=== PATIENT | male | born 1960 | race Asian ===

== ENCOUNTER 2016-06-15 04:47 | Emergency (ER) | payer MEDICAID, OTHER ==
[~2016-06-15] VITALS: Ht 157.5 cm; Wt 75.0 kg
[~2016-06-15 04:47] MED LIST: MULT-248 PO; PALI3 PO
[2016-06-15 06:56] LABS: BASOPHILS % (AUTO) 0.3 % (0.0-2.0); EOSINOPHILS % (AUTO) 1.6 % (1.0-6.0); HEMOGLOBIN 14.3 g/dL (13.5-17.5); LYMPHOCYTES # (AUTO) 1.1 K/uL (1.0-4.8); LYMPHOCYTES % (AUTO) 11.6 % (22.0-44.0); MEAN CORPUSCULAR HEMOGLOBIN 29.3 pg (26.0-34.0); MEAN CORPUSCULAR HGB CONC 32.6 G/dL (31.0-37.0); MEAN CORPUSCULAR VOLUME 90 fL (80-100); MONOCYTES # (AUTO) 0.5 K/uL (0.1-1.0); MONOCYTES % (AUTO) 5.3 % (2.0-9.0); NEUTROPHILS # (AUTO) 8.1 K/uL (1.8-7.7); NEUTROPHILS % (AUTO) 81.2 % (40.0-70.0); PLATELET COUNT (AUTO) 256 K/uL (150-450); RED BLOOD CELL COUNT(AUTO) 4.89 MIL/uL (4.50-5.90); RED CELL DISTRIBUTION WIDTH 15.7 % (11.5-14.5); WHITE BLOOD COUNT (AUTO) 9.9 K/uL (4.5-11.0)
[2016-06-15 07:01] LABS: ANION GAP 6 mmol/L (8-16); CALCIUM, TOTAL 8.9 mg/dL (8.8-10.5); CARBON DIOXIDE 31 mmol/L (22-29); CHLORIDE 103 mmol/L (98-107); CREATININE 0.73 mg/dL (0.60-1.30); GLOMERULAR FILTR. RATE CALC > 60 mL/min (>60); POTASSIUM 4.1 mmol/L (3.5-5.1); SODIUM SERUM 140 mmol/L (136-145); UREA NITROGEN, BLOOD 11 mg/dL (7-18)
[2016-06-15 07:13] LABS: ALANINE AMINOTRANSFERASE 15 U/L (12-78); ALBUMIN 3.8 g/dL (3.4-5.0); ASPARTATE AMINOTRANSFERASE 8 U/L (15-37); BILIRUBIN,TOTAL 0.4 mg/dL (0.1-1.0); TOTAL PROTEIN, SERUM 7.6 g/dL (6.4-8.2)
[2016-06-15 09:03] VITALS: BP 121/79
== END 2016-06-15 09:17 | disposition home or self-care (01) ==
LOC: EMS 04:49
DX: S30.842A External constriction of penis, initial encounter (principal); F17.210 Nicotine dependence, cigarettes, uncomplicated; F12.90 Cannabis use, unspecified, uncomplicated; W49.01XA Hair causing external constriction, initial encounter; Y93.89 Activity, other specified; Y92.89 Other specified places as the place of occurrence of the external cause; Y99.8 Other external cause status
CPT/HCPCS: 99291

== ENCOUNTER 2017-07-08 13:47 | Inpatient (IN) | payer MEDICAID, OTHER ==
[~2017-07-08] VITALS: Ht 170.2 cm; Wt 58.2 kg
[~2017-07-08 13:47] MED LIST changes: -MULT-248 PO; +PALI234D IM
[2017-07-08] MEDS ORDERED: RISP2 PO (14:22)
[2017-07-08 15:28] LABS: BASOPHILS % (AUTO) 0.8 % (0.0-2.0); EOSINOPHILS % (AUTO) 4.3 % (1.0-6.0); HEMATOCRIT 39.8 % (41-53); HEMOGLOBIN 13.3 g/dL (13.5-17.5); LYMPHOCYTES # (AUTO) 1.5 K/uL (1.0-4.8); LYMPHOCYTES % (AUTO) 30.3 % (22.0-44.0); MEAN CORPUSCULAR HGB CONC 33.3 G/dL (31.0-37.0); MEAN CORPUSCULAR VOLUME 90 fL (80-100); MONOCYTES # (AUTO) 0.4 K/uL (0.1-1.0); MONOCYTES % (AUTO) 8.8 % (2.0-9.0); NEUTROPHILS # (AUTO) 2.7 K/uL (1.8-7.7); NEUTROPHILS % (AUTO) 55.8 % (40.0-70.0); PLATELET COUNT (AUTO) 260 K/uL (150-450); RED BLOOD CELL COUNT(AUTO) 4.41 MIL/uL (4.50-5.90); RED CELL DISTRIBUTION WIDTH 14.4 % (11.5-14.5)
[2017-07-08 15:52] LABS: ANION GAP 8 mmol/L (8-16); CALCIUM, TOTAL 8.5 mg/dL (8.8-10.5); CARBON DIOXIDE 29 mmol/L (22-29); CHLORIDE 105 mmol/L (98-107); CREATININE 0.87 mg/dL (0.60-1.30); GLOMERULAR FILTR. RATE CALC > 60 mL/min (>60); GLUCOSE,RANDOM 176 mg/dL (70-110); POTASSIUM 3.2 mmol/L (3.5-5.1); SODIUM SERUM 142 mmol/L (136-145); UREA NITROGEN, BLOOD 11 mg/dL (7-18)
[2017-07-08 16:01] LABS: ALANINE AMINOTRANSFERASE 46 U/L (12-78); ALBUMIN 3.6 g/dL (3.4-5.0); ALKALINE PHOSPHATASE 76 U/L (46-116); ASPARTATE AMINOTRANSFERASE 22 U/L (15-37); BILIRUBIN,TOTAL 0.2 mg/dL (0.1-1.0); TOTAL PROTEIN, SERUM 6.7 g/dL (6.4-8.2)
[2017-07-08 17:31] LABS: AMPHET/METH SCREEN,URINE NEGATIVE (NEGATIVE); BARBITURATE SCREEN, URINE NEGATIVE (NEGATIVE); BENZODIAZEPINES SCREEN,URINE NEGATIVE (NEGATIVE); CANNABINOID SCREEN,URINE NEGATIVE (NEGATIVE); COCAINE SCREEN,URINE NEGATIVE (NEGATIVE); METHADONE SCREEN, URINE NEGATIVE (NEGATIVE); OPIATE SCREEN,URINE NEGATIVE (NEGATIVE)
[2017-07-08 17:35] LABS: PHENCYCLIDINE SCREEN,URINE NEGATIVE (NEGATIVE)
[2017-07-08 19:59] VITALS: BP 140/90
[2017-07-08 21:06] VITALS: BP 140/90
[2017-07-08] MEDS ORDERED: POTASSIUM CHLORIDE 20 MEQ ER TABLET PO ONE (21:30)
[2017-07-08] MEDS ORDERED: IBUPROFEN 600 MG TABLET PO PRN (22:15)
[2017-07-08] MEDS ORDERED: DENTURE ADHESIVE 68 GM CREAM DT PRN (22:15)
[2017-07-08] MEDS ORDERED: ALBUTEROL SULFATE HFA 90 MCG/PUFF 8 GM INHALER IH PRN (22:15)
[2017-07-08] MEDS ORDERED: ONDANSETRON HCL 4 MG TABLET PO PRN (22:15)
[2017-07-08] MEDS ORDERED: MAG HYDROX/AL HYDROX/SIMETH ES 30 ML SUSPENSION UDCUP PO PRN (22:15)
[2017-07-08] MEDS ORDERED: ACETAMINOPHEN 325 MG TABLET PO PRN (22:15)
[2017-07-08] MEDS ORDERED: CloNIDine HCL 0.1 MG TABLET PO PRN (22:15)
[2017-07-08] MEDS ORDERED: PETROLATUM,WHITE 71 GM JELLY TP PRN (22:15)
[2017-07-08] MEDS ORDERED: BENZOCAINE/MENTHOL LOZENGE PO PRN (22:15)
[2017-07-08] MEDS ORDERED: MAGNESIUM HYDROXIDE SUSPENSION 30 ML UDCUP PO PRN (22:15)
[2017-07-08] MEDS ORDERED: LOPERAMIDE HCL 2 MG CAPSULE PO PRN (22:15)
[2017-07-09] MEDS: HALOPERIDOL 5 MG TABLET PO PRN (01:11)
[2017-07-09] MEDS: ZOLPIDEM TARTRATE 10 MG TABLET PO PRN (01:12)
[2017-07-09 03:52] VITALS: BP 140/88
[2017-07-09 06:52] LABS: GLUCOMETER DEV NAME(LOC) 3EI B; GLUCOSE,POINT OF CARE 122 MG/DL (70-110)
[2017-07-09] MEDS ORDERED: ACETAMINOPHEN 325 MG TABLET PO PRN (08:45)
[2017-07-09] MEDS ORDERED: IBUPROFEN 400 MG TABLET PO PRN (08:45)
[2017-07-09] MEDS: BACITRACIN 28.4 GM OINTMENT TP SCH ×2 (09:32→16:10)
[2017-07-09 12:32] VITALS: BP 137/85
[2017-07-09 17:02] LABS: GLUCOMETER DEV NAME(LOC) 3EI B; GLUCOSE,POINT OF CARE 102 MG/DL (70-110)
[2017-07-09 20:11] VITALS: BP 119/78
[2017-07-10 00:40] VITALS: BP 125/80
[2017-07-10 06:22] LABS: GLUCOMETER DEV NAME(LOC) 3EI B; GLUCOSE,POINT OF CARE 82 MG/DL (70-110)
[2017-07-10 07:39] LABS: HEMOGLOBIN A1C 5.5 % (4.5-6.2)
[2017-07-10 07:55] LABS: CHOL/HDL RATIO 2.4 (4.2-7.3); THYROID STIMULATING HORMONE 1.63 uIU/mL (0.36-3.74)
[2017-07-10 08:20] LABS: AMPHET/METH SCREEN,URINE NEGATIVE (NEGATIVE); BARBITURATE SCREEN, URINE NEGATIVE (NEGATIVE); BENZODIAZEPINES SCREEN,URINE NEGATIVE (NEGATIVE); CANNABINOID SCREEN,URINE NEGATIVE (NEGATIVE); COCAINE SCREEN,URINE NEGATIVE (NEGATIVE); METHADONE SCREEN, URINE NEGATIVE (NEGATIVE); OPIATE SCREEN,URINE NEGATIVE (NEGATIVE); PHENCYCLIDINE SCREEN,URINE NEGATIVE (NEGATIVE)
[2017-07-10 08:53] LABS: APPEARANCE,URINE CLEAR (CLEAR); BILIRUBIN,URINE NEGATIVE (NEGATIVE); GLUCOSE, URINE (UA) NEGATIVE (NEGATIVE); KETONES,URINE NEGATIVE (NEGATIVE); LEUKOCYTE ESTERASE ,URINE NEGATIVE (NEGATIVE); NITRATE,URINE NEGATIVE (NEGATIVE); OCCULT BLOOD,URINE NEGATIVE (NEGATIVE); PROTEIN,URINE NEGATIVE (NEGATIVE); UROBILINOGEN,URINE 0.2 mg/dL (<=1.0)
[2017-07-10 09:39] VITALS: BP 133/75
[2017-07-10] MEDS: OLANZapine 5 MG RAPDIS TABLET PO SCH ×2 (09:39→16:30)
[2017-07-10] MEDS: BACITRACIN 28.4 GM OINTMENT TP SCH ×2 (09:39→16:30)
[2017-07-10 16:38] LABS: GLUCOMETER DEV NAME(LOC) 3EI B; GLUCOSE,POINT OF CARE 102 MG/DL (70-110)
[2017-07-10 16:55] VITALS: BP 131/82
[2017-07-11 06:43] LABS: GLUCOMETER DEV NAME(LOC) 3EI B; GLUCOSE,POINT OF CARE 146 MG/DL (70-110)
[2017-07-11 08:54] VITALS: BP 125/63
[2017-07-11] MEDS: BACITRACIN 28.4 GM OINTMENT TP SCH ×2 (09:00→16:30)
[2017-07-11] MEDS: OLANZapine 5 MG RAPDIS TABLET PO SCH ×2 (10:33→16:30)
[2017-07-11] MEDS: MUPIROCIN CALCIUM 2% 22 GM OINTMENT NASAL SCH (16:30)
[2017-07-11 17:51] VITALS: BP 101/67
[2017-07-12 02:00] VITALS: BP 142/96
[2017-07-12] MEDS: LORazepam 2 MG TABLET PO PRN (02:11)
[2017-07-12] MEDS: ZOLPIDEM TARTRATE 10 MG TABLET PO PRN (02:11)
[2017-07-12 06:18] LABS: GLUCOMETER DEV NAME(LOC) 3EI B; GLUCOSE,POINT OF CARE 80 MG/DL (70-110)
[2017-07-12 08:30] VITALS: BP 133/86
[2017-07-12] MEDS: MUPIROCIN CALCIUM 2% 22 GM OINTMENT NASAL SCH ×2 (09:00→16:49)
[2017-07-12] MEDS: BACITRACIN 28.4 GM OINTMENT TP SCH ×2 (09:00→16:47)
[2017-07-12] MEDS: OLANZapine 5 MG RAPDIS TABLET PO SCH ×2 (09:58→16:46)
[2017-07-12 16:53] LABS: GLUCOMETER DEV NAME(LOC) 3EI B; GLUCOSE,POINT OF CARE 121 MG/DL (70-110)
[2017-07-12 16:58] VITALS: BP 119/67
[2017-07-13] MEDS: ZOLPIDEM TARTRATE 10 MG TABLET PO PRN (01:06)
[2017-07-13 02:00] VITALS: BP 128/94
[2017-07-13 06:23] LABS: GLUCOMETER DEV NAME(LOC) 3EI B; GLUCOSE,POINT OF CARE 83 MG/DL (70-110)
[2017-07-13] MEDS: MUPIROCIN CALCIUM 2% 22 GM OINTMENT NASAL SCH ×3 (09:00→17:12)
[2017-07-13] MEDS: BACITRACIN 28.4 GM OINTMENT TP SCH ×3 (09:00→17:13)
[2017-07-13] MEDS: OLANZapine 5 MG RAPDIS TABLET PO SCH ×2 (10:02→17:05)
[2017-07-13 10:40] VITALS: BP 119/71
[2017-07-13 17:13] LABS: GLUCOMETER DEV NAME(LOC) 3EI B; GLUCOSE,POINT OF CARE 105 MG/DL (70-110)
[2017-07-13 17:50] VITALS: BP 127/77
[2017-07-14 01:00] VITALS: BP 139/80
[2017-07-14] MEDS: ZOLPIDEM TARTRATE 10 MG TABLET PO PRN (01:08)
[2017-07-14] MEDS: LORazepam 2 MG TABLET PO PRN (01:08)
[2017-07-14 05:33] LABS: GLUCOMETER DEV NAME(LOC) 3EI B; GLUCOSE,POINT OF CARE 85 MG/DL (70-110)
[2017-07-14] MEDS: BACITRACIN 28.4 GM OINTMENT TP SCH ×2 (09:00→17:18)
[2017-07-14] MEDS: MUPIROCIN CALCIUM 2% 22 GM OINTMENT NASAL SCH ×2 (09:00→17:18)
[2017-07-14] MEDS: OLANZapine 5 MG RAPDIS TABLET PO SCH ×2 (09:37→17:18)
[2017-07-14 10:28] VITALS: BP 125/85
[2017-07-14 17:00] VITALS: BP 125/90
[2017-07-15 02:03] VITALS: BP 129/80
[2017-07-15 06:23] LABS: GLUCOMETER DEV NAME(LOC) 3EI B; GLUCOSE,POINT OF CARE 91 MG/DL (70-110)
[2017-07-15 08:47] VITALS: BP 137/83
[2017-07-15] MEDS: OLANZapine 5 MG RAPDIS TABLET PO SCH ×2 (09:50→16:08)
[2017-07-15] MEDS: MUPIROCIN CALCIUM 2% 22 GM OINTMENT NASAL SCH ×2 (09:51→16:09)
[2017-07-15] MEDS: BACITRACIN 28.4 GM OINTMENT TP SCH ×2 (09:52→16:10)
[2017-07-15 16:32] LABS: GLUCOMETER DEV NAME(LOC) 3EI B; GLUCOSE,POINT OF CARE 116 MG/DL (70-110)
[2017-07-15 17:02] VITALS: BP 116/73
[2017-07-15] MEDS: ZOLPIDEM TARTRATE 10 MG TABLET PO PRN (21:57)
[2017-07-16 01:49] VITALS: BP 117/78
[2017-07-16 06:23] LABS: GLUCOMETER DEV NAME(LOC) 3EI B; GLUCOSE,POINT OF CARE 97 MG/DL (70-110)
[2017-07-16] MEDS: BACITRACIN 28.4 GM OINTMENT TP SCH ×2 (09:00→16:38)
[2017-07-16 09:40] VITALS: BP 132/91
[2017-07-16] MEDS: OLANZapine 5 MG RAPDIS TABLET PO SCH ×2 (09:51→16:38)
[2017-07-16] MEDS: MUPIROCIN CALCIUM 2% 22 GM OINTMENT NASAL SCH ×2 (10:00→16:38)
[2017-07-16 16:37] LABS: GLUCOMETER DEV NAME(LOC) 3EI B; GLUCOSE,POINT OF CARE 91 MG/DL (70-110)
[2017-07-16 21:16] VITALS: BP 122/82
[2017-07-17 05:33] LABS: GLUCOMETER DEV NAME(LOC) 3EI B; GLUCOSE,POINT OF CARE 88 MG/DL (70-110)
[2017-07-17 06:01] VITALS: BP 137/92
[2017-07-17] MEDS: BACITRACIN 28.4 GM OINTMENT TP SCH ×2 (09:00→17:00)
[2017-07-17] MEDS: OLANZapine 5 MG RAPDIS TABLET PO SCH ×2 (09:04→18:02)
[2017-07-17 09:27] VITALS: BP 142/89
[2017-07-17 16:23] VITALS: BP 140/77
[2017-07-18 01:49] VITALS: BP 120/84
[2017-07-18 05:42] LABS: GLUCOMETER DEV NAME(LOC) 3EI B; GLUCOSE,POINT OF CARE 87 MG/DL (70-110)
[2017-07-18] MEDS: BACITRACIN 28.4 GM OINTMENT TP SCH ×2 (08:40→17:11)
[2017-07-18] MEDS: OLANZapine 5 MG RAPDIS TABLET PO SCH ×2 (08:40→17:09)
[2017-07-18 10:49] VITALS: BP 125/76
[2017-07-18 16:15] VITALS: BP 111/79
[2017-07-18 16:53] LABS: GLUCOMETER DEV NAME(LOC) 3EI B; GLUCOSE,POINT OF CARE 130 MG/DL (70-110)
[2017-07-19 03:47] VITALS: BP 135/87
[2017-07-19 05:52] LABS: GLUCOMETER DEV NAME(LOC) 3EI B; GLUCOSE,POINT OF CARE 116 MG/DL (70-110)
[2017-07-19 08:47] VITALS: BP 131/83
[2017-07-19] MEDS: OLANZapine 5 MG RAPDIS TABLET PO SCH ×2 (09:28→17:47)
[2017-07-19] MEDS: BACITRACIN 28.4 GM OINTMENT TP SCH ×2 (09:29→17:48)
[2017-07-19 16:49] VITALS: BP 115/58
[2017-07-19 18:44] LABS: GLUCOMETER DEV NAME(LOC) 3EI B; GLUCOSE,POINT OF CARE 118 MG/DL (70-110)
[2017-07-20 06:13] LABS: GLUCOMETER DEV NAME(LOC) 3EI B; GLUCOSE,POINT OF CARE 90 MG/DL (70-110)
[2017-07-20] MEDS: BACITRACIN 28.4 GM OINTMENT TP SCH ×2 (08:50→17:07)
[2017-07-20] MEDS: OLANZapine 5 MG RAPDIS TABLET PO SCH ×2 (08:54→17:07)
[2017-07-20 09:24] VITALS: BP 110/72
[2017-07-20 12:02] LABS: GLUCOMETER DEV NAME(LOC) 3EI B; GLUCOSE,POINT OF CARE 99 MG/DL (70-110)
[2017-07-20 16:53] LABS: GLUCOMETER DEV NAME(LOC) 3EI B; GLUCOSE,POINT OF CARE 121 MG/DL (70-110)
[2017-07-20 18:47] VITALS: BP 109/68
[2017-07-21 05:09] VITALS: BP 134/86
[2017-07-21 05:28] LABS: GLUCOMETER DEV NAME(LOC) 3EI B; GLUCOSE,POINT OF CARE 98 MG/DL (70-110)
[2017-07-21 09:00] VITALS: BP 124/82
[2017-07-21] MEDS: BACITRACIN 28.4 GM OINTMENT TP SCH ×2 (09:00→16:31)
[2017-07-21] MEDS: OLANZapine 5 MG RAPDIS TABLET PO SCH ×2 (09:47→16:31)
[2017-07-21 11:57] LABS: GLUCOMETER DEV NAME(LOC) 3EI B; GLUCOSE,POINT OF CARE 109 MG/DL (70-110)
[2017-07-21 16:35] VITALS: BP 130/70
[2017-07-21 17:27] LABS: GLUCOMETER DEV NAME(LOC) 3EI B; GLUCOSE,POINT OF CARE 96 MG/DL (70-110)
[2017-07-22 05:47] LABS: GLUCOMETER DEV NAME(LOC) 3EC; GLUCOSE,POINT OF CARE 89 MG/DL (70-110)
[2017-07-22 06:43] VITALS: BP 118/76
[2017-07-22] MEDS: OLANZapine 5 MG RAPDIS TABLET PO SCH ×2 (08:53→17:27)
[2017-07-22] MEDS: BACITRACIN 28.4 GM OINTMENT TP SCH ×2 (08:53→17:26)
[2017-07-22 08:58] VITALS: BP 119/90
[2017-07-22 17:32] LABS: GLUCOMETER DEV NAME(LOC) 3EI B; GLUCOSE,POINT OF CARE 104 MG/DL (70-110)
[2017-07-22 19:04] VITALS: BP 126/72
[2017-07-23 05:52] LABS: GLUCOMETER DEV NAME(LOC) 3EI B; GLUCOSE,POINT OF CARE 86 MG/DL (70-110)
[2017-07-23 06:06] VITALS: BP 132/78
[2017-07-23] MEDS: OLANZapine 5 MG RAPDIS TABLET PO SCH ×2 (08:26→16:35)
[2017-07-23] MEDS: BACITRACIN 28.4 GM OINTMENT TP SCH ×2 (08:27→16:35)
[2017-07-23 09:49] VITALS: BP 132/81
[2017-07-23 11:33] LABS: GLUCOMETER DEV NAME(LOC) 3EI B; GLUCOSE,POINT OF CARE 123 MG/DL (70-110)
[2017-07-23 16:41] VITALS: BP 114/68
[2017-07-24 06:14] VITALS: BP 121/81
[2017-07-24 06:18] LABS: GLUCOMETER DEV NAME(LOC) 3EI B; GLUCOSE,POINT OF CARE 98 MG/DL (70-110)
[2017-07-24] MEDS: BACITRACIN 28.4 GM OINTMENT TP SCH ×2 (09:11→16:41)
[2017-07-24] MEDS: OLANZapine 5 MG RAPDIS TABLET PO SCH ×2 (09:11→16:41)
[2017-07-24 09:12] VITALS: BP 110/68
[2017-07-24 17:17] LABS: GLUCOMETER DEV NAME(LOC) 3EI B; GLUCOSE,POINT OF CARE 119 MG/DL (70-110)
[2017-07-24 17:48] VITALS: BP 152/94
[2017-07-25] MEDS: ZOLPIDEM TARTRATE 10 MG TABLET PO PRN (02:29)
[2017-07-25] MEDS: LORazepam 2 MG TABLET PO PRN (02:29)
[2017-07-25 05:33] LABS: GLUCOMETER DEV NAME(LOC) 3EI B; GLUCOSE,POINT OF CARE 116 MG/DL (70-110)
[2017-07-25 05:48] VITALS: BP 136/78
[2017-07-25] MEDS: OLANZapine 5 MG RAPDIS TABLET PO SCH ×2 (08:22→17:15)
[2017-07-25] MEDS: BACITRACIN 28.4 GM OINTMENT TP SCH ×2 (09:00→17:15)
[2017-07-25 09:30] VITALS: BP 127/82
[2017-07-25 17:10] VITALS: BP 112/79
[2017-07-25 17:27] LABS: GLUCOMETER DEV NAME(LOC) 3EI B; GLUCOSE,POINT OF CARE 104 MG/DL (70-110)
[2017-07-26 03:18] VITALS: BP 125/77
[2017-07-26 06:17] LABS: GLUCOMETER DEV NAME(LOC) 3EI B; GLUCOSE,POINT OF CARE 91 MG/DL (70-110)
[2017-07-26 08:45] VITALS: BP 135/85
[2017-07-26] MEDS: OLANZapine 5 MG RAPDIS TABLET PO SCH ×2 (09:52→16:39)
[2017-07-26] MEDS: BACITRACIN 28.4 GM OINTMENT TP SCH ×2 (09:52→16:40)
[2017-07-26 16:43] LABS: GLUCOMETER DEV NAME(LOC) 3EI B; GLUCOSE,POINT OF CARE 94 MG/DL (70-110)
[2017-07-26 18:05] VITALS: BP 133/72
[2017-07-27 01:40] VITALS: BP 117/79
[2017-07-27 05:38] LABS: GLUCOMETER DEV NAME(LOC) 3EI B; GLUCOSE,POINT OF CARE 95 MG/DL (70-110)
[2017-07-27] MEDS: OLANZapine 5 MG RAPDIS TABLET PO SCH ×2 (09:28→18:13)
[2017-07-27] MEDS: BACITRACIN 28.4 GM OINTMENT TP SCH ×2 (11:10→18:13)
[2017-07-27 17:13] LABS: GLUCOMETER DEV NAME(LOC) 3EI B; GLUCOSE,POINT OF CARE 102 MG/DL (70-110)
[2017-07-27 18:39] VITALS: BP 120/71
[2017-07-27] MEDS: ZOLPIDEM TARTRATE 10 MG TABLET PO PRN (21:14)
[2017-07-28 04:43] VITALS: BP 124/87
[2017-07-28 05:43] LABS: GLUCOMETER DEV NAME(LOC) 3EI B; GLUCOSE,POINT OF CARE 130 MG/DL (70-110)
[2017-07-28] MEDS: OLANZapine 10 MG TABLET PO SCH ×2 (09:09→16:15)
[2017-07-28 09:52] VITALS: BP 132/60
[2017-07-28] MEDS: BACITRACIN 28.4 GM OINTMENT TP SCH ×2 (09:52→16:16)
[2017-07-28 16:27] LABS: GLUCOMETER DEV NAME(LOC) 3EI B; GLUCOSE,POINT OF CARE 134 MG/DL (70-110)
[2017-07-28 17:10] VITALS: BP 120/86
[2017-07-28] MEDS: ZOLPIDEM TARTRATE 10 MG TABLET PO PRN (21:13)
[2017-07-29 05:30] VITALS: BP 120/81
[2017-07-29 06:17] LABS: GLUCOMETER DEV NAME(LOC) 3EI B; GLUCOSE,POINT OF CARE 101 MG/DL (70-110)
[2017-07-29] MEDS: OLANZapine 10 MG TABLET PO SCH ×2 (09:05→16:42)
[2017-07-29] MEDS: BACITRACIN 28.4 GM OINTMENT TP SCH ×2 (09:05→16:43)
[2017-07-29 10:23] VITALS: BP 140/68
[2017-07-29 16:47] LABS: GLUCOMETER DEV NAME(LOC) 3EI B; GLUCOSE,POINT OF CARE 112 MG/DL (70-110)
[2017-07-29 17:53] VITALS: BP 136/71
[2017-07-30 06:23] LABS: GLUCOMETER DEV NAME(LOC) 3EI B; GLUCOSE,POINT OF CARE 101 MG/DL (70-110)
[2017-07-30] MEDS: BACITRACIN 28.4 GM OINTMENT TP SCH ×2 (09:00→16:07)
[2017-07-30 09:38] VITALS: BP 115/77
[2017-07-30] MEDS: OLANZapine 10 MG TABLET PO SCH ×2 (09:51→16:07)
[2017-07-30 16:12] LABS: GLUCOMETER DEV NAME(LOC) 3EI B; GLUCOSE,POINT OF CARE 98 MG/DL (70-110)
[2017-07-30 16:52] VITALS: BP 118/70
[2017-07-31 05:37] LABS: GLUCOMETER DEV NAME(LOC) 3EI B; GLUCOSE,POINT OF CARE 108 MG/DL (70-110)
[2017-07-31] MEDS: BACITRACIN 28.4 GM OINTMENT TP SCH ×2 (09:00→17:13)
[2017-07-31 09:17] VITALS: BP 131/73
[2017-07-31] MEDS: OLANZapine 10 MG TABLET PO SCH ×2 (09:31→17:13)
[2017-07-31 16:14] VITALS: BP 132/69
[2017-07-31 17:08] LABS: GLUCOMETER DEV NAME(LOC) 3EI B; GLUCOSE,POINT OF CARE 134 MG/DL (70-110)
[2017-08-01 04:29] VITALS: BP 136/87
[2017-08-01 05:48] LABS: GLUCOMETER DEV NAME(LOC) 3EI B; GLUCOSE,POINT OF CARE 104 MG/DL (70-110)
[2017-08-01] MEDS: OLANZapine 10 MG TABLET PO SCH ×2 (09:19→17:22)
[2017-08-01] MEDS: BACITRACIN 28.4 GM OINTMENT TP SCH ×2 (09:20→17:21)
[2017-08-01 09:40] VITALS: BP 140/82
[2017-08-01 16:53] LABS: GLUCOMETER DEV NAME(LOC) 3EI B; GLUCOSE,POINT OF CARE 131 MG/DL (70-110)
[2017-08-01 18:05] VITALS: BP 137/78
[2017-08-02 02:08] VITALS: BP 134/76
[2017-08-02 05:28] LABS: GLUCOMETER DEV NAME(LOC) 3EI B; GLUCOSE,POINT OF CARE 109 MG/DL (70-110)
[2017-08-02] MEDS: OLANZapine 10 MG TABLET PO SCH ×2 (09:08→17:24)
[2017-08-02] MEDS: BACITRACIN 28.4 GM OINTMENT TP SCH (09:08)
[2017-08-02 09:35] VITALS: BP 152/82
[2017-08-02] MEDS ORDERED: TUBERCULIN, PURIFIED PROTEIN DERIVATIVE 5 TU/0.1 ML SYG ID ONE (12:15)
[2017-08-02 16:46] VITALS: BP 131/80
[2017-08-02 17:27] LABS: GLUCOMETER DEV NAME(LOC) 3EI B; GLUCOSE,POINT OF CARE 112 MG/DL (70-110)
[2017-08-03 05:34] VITALS: BP 118/76
[2017-08-03 05:34] LABS: GLUCOMETER DEV NAME(LOC) 3EI B; GLUCOSE,POINT OF CARE 101 MG/DL (70-110)
[2017-08-03 08:00] VITALS: BP 127/94
[2017-08-03] MEDS: OLANZapine 10 MG TABLET PO SCH ×2 (08:37→17:16)
[2017-08-03 16:46] VITALS: BP 121/77
[2017-08-03 17:23] LABS: GLUCOMETER DEV NAME(LOC) 3EX 1; GLUCOSE,POINT OF CARE 117 MG/DL (70-110)
[2017-08-04 06:08] LABS: GLUCOMETER DEV NAME(LOC) 3EX 1; GLUCOSE,POINT OF CARE 101 MG/DL (70-110)
[2017-08-04 09:43] VITALS: BP 126/75
[2017-08-04] MEDS: OLANZapine 10 MG TABLET PO SCH ×2 (09:51→16:03)
[2017-08-04 16:08] LABS: GLUCOMETER DEV NAME(LOC) 3EX 1; GLUCOSE,POINT OF CARE 107 MG/DL (70-110)
[2017-08-04 17:02] VITALS: BP 104/62
[2017-08-05 05:43] LABS: GLUCOMETER DEV NAME(LOC) 3EX 1; GLUCOSE,POINT OF CARE 98 MG/DL (70-110)
[2017-08-05 09:46] VITALS: BP 151/77
[2017-08-05] MEDS: OLANZapine 10 MG TABLET PO SCH ×2 (10:40→16:31)
[2017-08-05 16:38] LABS: GLUCOMETER DEV NAME(LOC) 3EX 1; GLUCOSE,POINT OF CARE 144 MG/DL (70-110)
[2017-08-05 18:33] VITALS: BP 127/79
[2017-08-06 06:28] LABS: GLUCOMETER DEV NAME(LOC) 3EX 1; GLUCOSE,POINT OF CARE 102 MG/DL (70-110)
[2017-08-06 09:16] VITALS: BP 127/69
[2017-08-06] MEDS: OLANZapine 10 MG TABLET PO SCH ×2 (09:52→17:00)
[2017-08-06 17:17] LABS: GLUCOMETER DEV NAME(LOC) 3EX 1; GLUCOSE,POINT OF CARE 97 MG/DL (70-110)
[2017-08-06 17:34] VITALS: BP 124/80
[2017-08-07 03:57] VITALS: BP 135/88
[2017-08-07 05:28] LABS: GLUCOMETER DEV NAME(LOC) 3EX 1; GLUCOSE,POINT OF CARE 95 MG/DL (70-110)
[2017-08-07 09:04] VITALS: BP 132/89
[2017-08-07] MEDS: OLANZapine 10 MG TABLET PO SCH ×2 (10:48→16:49)
[2017-08-07 17:02] LABS: GLUCOMETER DEV NAME(LOC) 3EX 1; GLUCOSE,POINT OF CARE 131 MG/DL (70-110)
[2017-08-07 17:13] VITALS: BP 121/74
[2017-08-08 03:13] VITALS: BP 155/75
[2017-08-08 06:28] LABS: GLUCOMETER DEV NAME(LOC) 3EX 1; GLUCOSE,POINT OF CARE 94 MG/DL (70-110)
[2017-08-08] MEDS: OLANZapine 10 MG TABLET PO SCH ×2 (08:10→16:31)
[2017-08-08 09:19] VITALS: BP 101/55
[2017-08-08 16:26] VITALS: BP 117/73
[2017-08-08 16:38] LABS: GLUCOMETER DEV NAME(LOC) 3EX 1; GLUCOSE,POINT OF CARE 114 MG/DL (70-110)
[2017-08-09 06:45] VITALS: BP 103/62
[2017-08-09 07:02] LABS: GLUCOMETER DEV NAME(LOC) 3EX 1; GLUCOSE,POINT OF CARE 93 MG/DL (70-110)
[2017-08-09 08:29] VITALS: BP 140/83
[2017-08-09] MEDS: OLANZapine 10 MG TABLET PO SCH ×2 (09:03→16:14)
[2017-08-09 17:07] LABS: GLUCOMETER DEV NAME(LOC) 3EX 1; GLUCOSE,POINT OF CARE 148 MG/DL (70-110)
[2017-08-09 17:08] VITALS: BP 132/69
[2017-08-10 06:33] LABS: GLUCOMETER DEV NAME(LOC) 3EX 1; GLUCOSE,POINT OF CARE 99 MG/DL (70-110)
[2017-08-10 08:05] VITALS: BP 134/86
[2017-08-10] MEDS: OLANZapine 10 MG TABLET PO SCH ×2 (08:58→17:00)
[2017-08-10 16:59] VITALS: BP 108/73
[2017-08-11 05:43] LABS: GLUCOMETER DEV NAME(LOC) 3EX 1; GLUCOSE,POINT OF CARE 101 MG/DL (70-110)
[2017-08-11] MEDS: OLANZapine 10 MG TABLET PO SCH ×2 (09:38→16:30)
[2017-08-11 15:06] VITALS: BP 127/76
[2017-08-11 22:11] VITALS: BP 148/89
[2017-08-12 06:28] LABS: GLUCOMETER DEV NAME(LOC) 3EX 1; GLUCOSE,POINT OF CARE 89 MG/DL (70-110)
[2017-08-12] MEDS: OLANZapine 10 MG TABLET PO SCH ×2 (09:29→16:10)
[2017-08-12 15:08] VITALS: BP 117/88
[2017-08-12 16:18] LABS: GLUCOMETER DEV NAME(LOC) 3EX 1; GLUCOSE,POINT OF CARE 115 MG/DL (70-110)
[2017-08-12 18:10] VITALS: BP 121/68
[2017-08-13 06:08] LABS: GLUCOMETER DEV NAME(LOC) 3EX 1; GLUCOSE,POINT OF CARE 82 MG/DL (70-110)
[2017-08-13] MEDS: OLANZapine 10 MG TABLET PO SCH ×2 (09:47→16:41)
[2017-08-13 10:26] VITALS: BP 119/70
[2017-08-13 17:05] VITALS: BP 124/79
[2017-08-14 06:18] LABS: GLUCOMETER DEV NAME(LOC) 3EX 1; GLUCOSE,POINT OF CARE 90 MG/DL (70-110)
[2017-08-14] MEDS: OLANZapine 10 MG TABLET PO SCH ×2 (08:23→16:14)
[2017-08-14 10:20] VITALS: BP 129/87
[2017-08-14 16:39] VITALS: BP 111/76
[2017-08-15 06:39] LABS: GLUCOMETER DEV NAME(LOC) 3EI B; GLUCOSE,POINT OF CARE 87 MG/DL (70-110)
[2017-08-15] MEDS: OLANZapine 10 MG TABLET PO SCH ×2 (08:56→16:23)
[2017-08-15 09:19] VITALS: BP 141/85
[2017-08-15 17:11] VITALS: BP 126/73
[2017-08-16 05:48] LABS: GLUCOMETER DEV NAME(LOC) 3EI B; GLUCOSE,POINT OF CARE 106 MG/DL (70-110)
[2017-08-16 08:57] VITALS: BP 108/81
[2017-08-16] MEDS: OLANZapine 10 MG TABLET PO SCH ×2 (10:12→16:49)
[2017-08-16 21:24] VITALS: BP 116/77
[2017-08-17 05:53] LABS: GLUCOMETER DEV NAME(LOC) 3EI B; GLUCOSE,POINT OF CARE 108 MG/DL (70-110)
[2017-08-17] MEDS: OLANZapine 10 MG TABLET PO SCH ×2 (09:08→16:30)
[2017-08-17 09:54] VITALS: BP 145/71
[2017-08-17 16:41] VITALS: BP 122/72
[2017-08-18 05:53] LABS: GLUCOMETER DEV NAME(LOC) 3EI B; GLUCOSE,POINT OF CARE 88 MG/DL (70-110)
[2017-08-18 08:54] VITALS: BP 111/63
[2017-08-18] MEDS: OLANZapine 10 MG TABLET PO SCH ×2 (10:09→16:22)
[2017-08-18 16:38] VITALS: BP 120/70
[2017-08-19 06:18] LABS: GLUCOMETER DEV NAME(LOC) 3EI B; GLUCOSE,POINT OF CARE 104 MG/DL (70-110)
[2017-08-19 08:05] VITALS: BP 113/69
[2017-08-19] MEDS: OLANZapine 10 MG TABLET PO SCH ×2 (08:19→16:18)
[2017-08-19 18:38] VITALS: BP 112/70
[2017-08-20 05:58] LABS: GLUCOMETER DEV NAME(LOC) 3EI B; GLUCOSE,POINT OF CARE 91 MG/DL (70-110)
[2017-08-20] MEDS: OLANZapine 10 MG TABLET PO SCH ×2 (08:13→16:28)
[2017-08-20 09:49] VITALS: BP 144/94
[2017-08-20 17:15] VITALS: BP 115/64
[2017-08-21 05:47] LABS: GLUCOMETER DEV NAME(LOC) 3EI B; GLUCOSE,POINT OF CARE 95 MG/DL (70-110)
[2017-08-21 05:52] VITALS: BP 121/72
[2017-08-21 08:53] VITALS: BP 127/80
[2017-08-21] MEDS: OLANZapine 10 MG TABLET PO SCH ×2 (10:39→18:00)
[2017-08-21 16:30] VITALS: BP 124/76
[2017-08-22 06:48] LABS: GLUCOMETER DEV NAME(LOC) 3EI B; GLUCOSE,POINT OF CARE 85 MG/DL (70-110)
[2017-08-22] MEDS: OLANZapine 10 MG TABLET PO SCH ×2 (10:21→16:19)
[2017-08-22 10:38] VITALS: BP 107/69
[2017-08-22 19:33] VITALS: BP 98/64
[2017-08-23 05:53] LABS: GLUCOMETER DEV NAME(LOC) 3EI B; GLUCOSE,POINT OF CARE 95 MG/DL (70-110)
[2017-08-23 09:49] VITALS: BP 102/79
[2017-08-23] MEDS: OLANZapine 10 MG TABLET PO SCH ×2 (12:21→16:45)
[2017-08-23 19:05] VITALS: BP 116/71
[2017-08-24 06:09] LABS: GLUCOMETER DEV NAME(LOC) 3EI B; GLUCOSE,POINT OF CARE 96 MG/DL (70-110)
[2017-08-24 08:05] VITALS: BP 113/83
[2017-08-24] MEDS: OLANZapine 10 MG TABLET PO SCH ×2 (10:28→16:39)
[2017-08-24 16:33] VITALS: BP 144/90
[2017-08-25 05:48] LABS: GLUCOMETER DEV NAME(LOC) 3EI B; GLUCOSE,POINT OF CARE 86 MG/DL (70-110)
[2017-08-25] MEDS: OLANZapine 10 MG TABLET PO SCH ×2 (08:16→16:35)
[2017-08-25 10:34] VITALS: BP 110/89
[2017-08-25 16:50] VITALS: BP 117/77
[2017-08-26 01:33] VITALS: BP 131/67
[2017-08-26 05:44] LABS: GLUCOMETER DEV NAME(LOC) 3EI B; GLUCOSE,POINT OF CARE 133 MG/DL (70-110)
[2017-08-26] MEDS: OLANZapine 10 MG TABLET PO SCH ×2 (10:05→17:17)
[2017-08-26 10:45] VITALS: BP 124/73
[2017-08-26 18:59] VITALS: BP 119/68
[2017-08-27 06:09] LABS: GLUCOMETER DEV NAME(LOC) 3EI B; GLUCOSE,POINT OF CARE 91 MG/DL (70-110)
[2017-08-27] MEDS: OLANZapine 10 MG TABLET PO SCH ×2 (09:18→16:43)
[2017-08-27 11:21] VITALS: BP 142/54
[2017-08-27 18:22] VITALS: BP 136/76
[2017-08-28 05:45] LABS: GLUCOMETER DEV NAME(LOC) 3EI B; GLUCOSE,POINT OF CARE 106 MG/DL (70-110)
[2017-08-28] MEDS: OLANZapine 10 MG TABLET PO SCH ×2 (10:48→16:34)
[2017-08-28 18:36] VITALS: BP 132/71
[2017-08-29 05:35] LABS: GLUCOMETER DEV NAME(LOC) 3EI B; GLUCOSE,POINT OF CARE 89 MG/DL (70-110)
[2017-08-29] MEDS: OLANZapine 10 MG TABLET PO SCH ×2 (09:14→16:17)
[2017-08-29 12:45] VITALS: BP 127/74
[2017-08-29 16:42] VITALS: BP 116/76
[2017-08-30 06:04] LABS: GLUCOMETER DEV NAME(LOC) 3EI B; GLUCOSE,POINT OF CARE 116 MG/DL (70-110)
[2017-08-30] MEDS: OLANZapine 10 MG TABLET PO SCH ×2 (08:54→16:40)
[2017-08-30 09:00] VITALS: BP 105/79
[2017-08-30 22:02] VITALS: BP 112/69
[2017-08-31 05:54] LABS: GLUCOMETER DEV NAME(LOC) 3EI B; GLUCOSE,POINT OF CARE 119 MG/DL (70-110)
[2017-08-31] MEDS: OLANZapine 10 MG TABLET PO SCH ×2 (08:35→16:40)
[2017-08-31 09:51] VITALS: BP 123/81
[2017-08-31 17:49] VITALS: BP 132/71
[2017-09-01 08:31] VITALS: BP 129/90
[2017-09-01] MEDS: OLANZapine 10 MG TABLET PO SCH ×2 (10:04→16:13)
[2017-09-01 17:12] VITALS: BP 129/89
[2017-09-02 09:29] VITALS: BP 115/76
[2017-09-02] MEDS: OLANZapine 10 MG TABLET PO SCH ×2 (09:40→16:50)
[2017-09-02 17:12] VITALS: BP 138/80
[2017-09-03 08:48] VITALS: BP 115/65
[2017-09-03] MEDS: OLANZapine 10 MG TABLET PO SCH ×2 (09:25→16:36)
[2017-09-03 19:30] VITALS: BP 149/77
[2017-09-04] MEDS: OLANZapine 10 MG TABLET PO SCH ×2 (09:11→17:25)
[2017-09-04 09:44] VITALS: BP 112/88
[2017-09-04 20:58] VITALS: BP 117/79
[2017-09-05 08:30] VITALS: BP 155/82
[2017-09-05] MEDS: OLANZapine 10 MG TABLET PO SCH ×2 (09:21→17:10)
[2017-09-05 17:27] VITALS: BP 118/79
[2017-09-06] MEDS: OLANZapine 10 MG TABLET PO SCH ×2 (09:16→16:22)
[2017-09-06 09:29] VITALS: BP 132/88
[2017-09-06 21:37] VITALS: BP 111/66
[2017-09-07 08:49] VITALS: BP 104/57
[2017-09-07] MEDS: OLANZapine 10 MG TABLET PO SCH ×2 (08:58→16:50)
[2017-09-07 18:21] VITALS: BP 105/62
[2017-09-08 09:00] VITALS: BP 119/69
[2017-09-08] MEDS: OLANZapine 10 MG TABLET PO SCH ×2 (09:08→16:51)
[2017-09-08 17:09] VITALS: BP 112/69
[2017-09-09 08:08] VITALS: BP 133/83
[2017-09-09] MEDS: OLANZapine 10 MG TABLET PO SCH ×2 (09:32→16:11)
[2017-09-09 16:30] VITALS: BP 133/86
[2017-09-10 08:30] VITALS: BP 114/74
[2017-09-10] MEDS: OLANZapine 10 MG TABLET PO SCH ×2 (09:55→16:24)
[2017-09-10 17:19] VITALS: BP 112/72
[2017-09-11 08:30] VITALS: BP 123/74
[2017-09-11] MEDS: OLANZapine 10 MG TABLET PO SCH ×2 (10:21→16:36)
[2017-09-11 18:11] VITALS: BP 129/71
[2017-09-12 08:05] VITALS: BP 132/86
[2017-09-12] MEDS: OLANZapine 10 MG TABLET PO SCH ×2 (09:44→16:30)
[2017-09-12 17:18] VITALS: BP 121/81
[2017-09-13 09:06] VITALS: BP 103/64
[2017-09-13] MEDS: OLANZapine 10 MG TABLET PO SCH ×2 (09:56→16:02)
[2017-09-13 18:41] VITALS: BP 117/73
[2017-09-14] MEDS: OLANZapine 10 MG TABLET PO SCH ×2 (08:56→16:13)
[2017-09-14 09:36] VITALS: BP 122/90
[2017-09-14 18:52] VITALS: BP 124/61
[2017-09-15] MEDS: OLANZapine 10 MG TABLET PO SCH ×2 (09:43→16:29)
[2017-09-15 12:34] VITALS: BP 125/79
[2017-09-15 17:16] VITALS: BP 134/80
[2017-09-16] MEDS: OLANZapine 10 MG TABLET PO SCH ×2 (09:20→16:24)
[2017-09-16 12:04] VITALS: BP 107/66
[2017-09-16 16:39] VITALS: BP 110/67
[2017-09-17 08:48] VITALS: BP 112/82
[2017-09-17] MEDS: OLANZapine 10 MG TABLET PO SCH ×2 (10:15→16:28)
[2017-09-17 17:03] VITALS: BP 144/81
[2017-09-18 09:29] VITALS: BP 105/60
[2017-09-18] MEDS: OLANZapine 10 MG TABLET PO SCH ×2 (10:14→16:01)
[2017-09-18 17:12] VITALS: BP 133/86
[2017-09-19] MEDS: OLANZapine 10 MG TABLET PO SCH ×2 (09:39→17:16)
[2017-09-19 09:41] VITALS: BP 145/78
[2017-09-19 17:34] VITALS: BP 125/79
[2017-09-20 09:38] VITALS: BP 115/95
[2017-09-20] MEDS: OLANZapine 10 MG TABLET PO SCH ×2 (10:04→16:21)
[2017-09-20 16:59] VITALS: BP 112/71
[2017-09-21] MEDS: OLANZapine 10 MG TABLET PO SCH ×2 (09:29→16:08)
[2017-09-21 11:32] VITALS: BP 135/67
[2017-09-21 16:46] VITALS: BP 117/72
[2017-09-22 09:39] VITALS: BP 136/80
[2017-09-22] MEDS: OLANZapine 10 MG TABLET PO SCH ×2 (09:59→16:49)
[2017-09-22 17:00] VITALS: BP 140/76
[2017-09-23 08:49] VITALS: BP 136/84
[2017-09-23] MEDS: OLANZapine 10 MG TABLET PO SCH ×2 (10:12→16:14)
[2017-09-23 18:53] VITALS: BP 118/81
[2017-09-24 08:30] VITALS: BP 118/76
[2017-09-24] MEDS: OLANZapine 10 MG TABLET PO SCH ×2 (09:37→16:17)
[2017-09-24 20:57] VITALS: BP 117/66
[2017-09-25 09:00] VITALS: BP 135/78
[2017-09-25] MEDS: OLANZapine 10 MG TABLET PO SCH ×2 (09:50→16:26)
[2017-09-25 16:59] VITALS: BP 125/98
[2017-09-26 01:47] VITALS: BP 131/82
[2017-09-26 08:34] VITALS: BP 148/96
[2017-09-26] MEDS: OLANZapine 10 MG TABLET PO SCH ×2 (08:41→16:02)
[2017-09-26 16:11] VITALS: BP 125/83
[2017-09-27 08:30] VITALS: BP 111/68
[2017-09-27] MEDS: OLANZapine 10 MG TABLET PO SCH ×2 (08:46→16:14)
[2017-09-27 17:26] VITALS: BP 108/75
[2017-09-28 08:24] VITALS: BP 118/70
[2017-09-28] MEDS: OLANZapine 10 MG TABLET PO SCH ×2 (08:26→16:17)
[2017-09-28 17:19] VITALS: BP 107/72
[2017-09-29] MEDS: OLANZapine 10 MG TABLET PO SCH ×2 (07:58→15:59)
[2017-09-29 08:09] VITALS: BP 147/90
[2017-09-29 21:29] VITALS: BP 111/70
[2017-09-30 08:16] VITALS: BP 102/64
[2017-09-30] MEDS: OLANZapine 10 MG TABLET PO SCH ×2 (09:33→16:29)
[2017-09-30 16:20] VITALS: BP 146/74
[2017-10-01 09:45] VITALS: BP 130/92
[2017-10-01] MEDS: OLANZapine 10 MG TABLET PO SCH ×2 (09:55→16:57)
[2017-10-01 19:30] VITALS: BP 118/71
[2017-10-02] MEDS: OLANZapine 10 MG TABLET PO SCH ×2 (08:33→16:23)
[2017-10-02 09:04] VITALS: BP 119/79
[2017-10-02 17:00] VITALS: BP 117/77
[2017-10-03 03:25] VITALS: BP 140/90
[2017-10-03] MEDS: OLANZapine 10 MG TABLET PO SCH ×2 (09:05→17:22)
[2017-10-03 11:38] VITALS: BP 119/79
[2017-10-03 22:17] VITALS: BP 129/82
[2017-10-04] MEDS: OLANZapine 10 MG TABLET PO SCH ×2 (09:49→17:07)
[2017-10-04 16:52] VITALS: BP 117/76
[2017-10-05 08:05] VITALS: BP 127/77
[2017-10-05] MEDS: OLANZapine 10 MG TABLET PO SCH ×2 (09:51→17:27)
[2017-10-05 17:00] VITALS: BP 130/75
[2017-10-06 08:51] VITALS: BP 134/65
[2017-10-06] MEDS: OLANZapine 10 MG TABLET PO SCH ×2 (09:38→16:33)
[2017-10-06 17:13] VITALS: BP 109/65
[2017-10-07] MEDS: OLANZapine 10 MG TABLET PO SCH ×2 (09:48→17:38)
[2017-10-07 10:39] VITALS: BP 114/67
[2017-10-07 17:00] VITALS: BP 116/76
[2017-10-08 09:33] VITALS: BP 129/72
[2017-10-08] MEDS: OLANZapine 10 MG TABLET PO SCH ×2 (10:02→16:13)
[2017-10-08 20:17] VITALS: BP 117/72
[2017-10-09] MEDS: OLANZapine 10 MG TABLET PO SCH ×2 (10:03→16:31)
[2017-10-09 10:35] VITALS: BP 106/71
[2017-10-09 16:56] VITALS: BP 109/72
[2017-10-10] MEDS: OLANZapine 10 MG TABLET PO SCH ×2 (09:26→16:48)
[2017-10-10 19:37] VITALS: BP 118/83
[2017-10-11] MEDS: OLANZapine 10 MG TABLET PO SCH ×2 (09:04→16:59)
[2017-10-11 10:00] VITALS: BP 110/73
[2017-10-11 16:57] VITALS: BP 130/79
[2017-10-12 08:30] VITALS: BP 122/74
[2017-10-12] MEDS: OLANZapine 10 MG TABLET PO SCH ×2 (08:56→17:19)
[2017-10-12 21:55] VITALS: BP 121/72
[2017-10-13] MEDS: OLANZapine 10 MG TABLET PO SCH ×2 (08:26→17:17)
[2017-10-13 08:38] VITALS: BP 118/51
[2017-10-13 22:44] VITALS: BP 128/72
[2017-10-14 08:41] VITALS: BP 126/94
[2017-10-14] MEDS: OLANZapine 10 MG TABLET PO SCH ×2 (08:49→17:07)
[2017-10-14 22:39] VITALS: BP 112/81
[2017-10-15 09:21] VITALS: BP 135/84
[2017-10-15] MEDS: OLANZapine 10 MG TABLET PO SCH ×2 (10:40→16:51)
[2017-10-15 19:08] VITALS: BP 108/78
[2017-10-16 08:47] VITALS: BP 121/68
[2017-10-16] MEDS: OLANZapine 10 MG TABLET PO SCH ×2 (10:00→16:55)
[2017-10-16 18:12] VITALS: BP 147/81
[2017-10-17 08:45] VITALS: BP 113/82
[2017-10-17] MEDS: OLANZapine 10 MG TABLET PO SCH ×2 (09:26→16:33)
[2017-10-17 17:49] VITALS: BP 125/85
[2017-10-18 08:59] VITALS: BP 150/97
[2017-10-18] MEDS: OLANZapine 10 MG TABLET PO SCH ×2 (09:00→16:32)
[2017-10-18 17:11] VITALS: BP 118/66
[2017-10-19] MEDS: OLANZapine 10 MG TABLET PO SCH ×2 (09:25→16:26)
[2017-10-19 10:39] VITALS: BP 126/71
[2017-10-19 19:22] VITALS: BP 120/74
[2017-10-20 01:14] VITALS: BP 119/65
[2017-10-20 08:41] VITALS: BP 116/76
[2017-10-20] MEDS: OLANZapine 10 MG TABLET PO SCH ×2 (09:11→17:49)
[2017-10-20 16:00] VITALS: BP 118/68
[2017-10-21 08:05] VITALS: BP 114/70
[2017-10-21] MEDS: OLANZapine 10 MG TABLET PO SCH ×2 (08:38→16:21)
[2017-10-21 17:58] VITALS: BP 122/42
[2017-10-22] MEDS: OLANZapine 10 MG TABLET PO SCH ×2 (08:10→16:27)
[2017-10-22 08:30] VITALS: BP 118/77
[2017-10-22 17:38] VITALS: BP 138/91
[2017-10-23 01:17] VITALS: BP 149/93
[2017-10-23 09:41] VITALS: BP 137/76
[2017-10-23] MEDS: OLANZapine 10 MG TABLET PO SCH ×2 (10:09→16:51)
[2017-10-23 17:15] VITALS: BP 132/71
[2017-10-24 08:56] VITALS: BP 127/68
[2017-10-24] MEDS: OLANZapine 10 MG TABLET PO SCH ×2 (10:54→16:40)
[2017-10-24 18:28] VITALS: BP 129/70
[2017-10-25 02:17] VITALS: BP 123/72
[2017-10-25 08:26] VITALS: BP 126/70
[2017-10-25] MEDS: OLANZapine 10 MG TABLET PO SCH ×2 (08:48→17:14)
[2017-10-25 18:54] VITALS: BP 118/76
[2017-10-26] MEDS: OLANZapine 10 MG TABLET PO SCH ×2 (08:42→16:42)
[2017-10-26 09:00] VITALS: BP 118/73
[2017-10-27] MEDS: OLANZapine 10 MG TABLET PO SCH ×2 (08:22→16:15)
[2017-10-27 09:51] VITALS: BP 116/77
[2017-10-27 21:08] VITALS: BP 125/91
[2017-10-28 08:05] VITALS: BP 145/74
[2017-10-28] MEDS: OLANZapine 10 MG TABLET PO SCH ×2 (10:01→16:48)
[2017-10-28 16:41] VITALS: BP 118/77
[2017-10-29 08:11] VITALS: BP 128/70
[2017-10-29] MEDS: OLANZapine 10 MG TABLET PO SCH ×2 (10:28→16:35)
[2017-10-29 19:44] VITALS: BP 122/77
[2017-10-30 08:14] VITALS: BP 126/79
[2017-10-30] MEDS: OLANZapine 10 MG TABLET PO SCH ×2 (09:29→16:43)
[2017-10-30 16:49] VITALS: BP 130/70
[2017-10-31 09:31] VITALS: BP 131/95
[2017-10-31] MEDS: OLANZapine 10 MG TABLET PO SCH ×2 (09:57→16:44)
[2017-10-31 17:14] VITALS: BP 148/87
[2017-11-01 09:07] VITALS: BP 130/80
[2017-11-01] MEDS: OLANZapine 10 MG TABLET PO SCH ×2 (10:17→16:58)
[2017-11-01 17:13] VITALS: BP 108/74
[2017-11-02 09:05] VITALS: BP 155/105
[2017-11-02] MEDS: OLANZapine 10 MG TABLET PO SCH ×2 (09:49→16:24)
[2017-11-02 17:14] VITALS: BP 149/86
[2017-11-03 05:47] VITALS: BP 135/78
[2017-11-03] MEDS: OLANZapine 10 MG TABLET PO SCH ×2 (10:19→16:29)
[2017-11-03 10:52] VITALS: BP 152/95
[2017-11-03 17:00] VITALS: BP 144/96
[2017-11-04 08:55] VITALS: BP 124/85
[2017-11-04] MEDS: OLANZapine 10 MG TABLET PO SCH ×2 (10:07→16:33)
[2017-11-04 18:51] VITALS: BP 123/102
[2017-11-05 09:01] VITALS: BP 97/64
[2017-11-05] MEDS: OLANZapine 10 MG TABLET PO SCH ×2 (09:11→16:44)
[2017-11-05 16:30] VITALS: BP 121/72
[2017-11-06] MEDS: LORazepam 2 MG TABLET PO PRN (00:11)
[2017-11-06 01:06] VITALS: BP 149/82
[2017-11-06] MEDS: OLANZapine 10 MG TABLET PO SCH ×2 (09:45→16:10)
[2017-11-06 10:51] VITALS: BP 128/89
[2017-11-06 19:18] VITALS: BP 143/98
[2017-11-07 02:03] VITALS: BP 134/58
[2017-11-07] MEDS: ZOLPIDEM TARTRATE 10 MG TABLET PO PRN (02:03)
[2017-11-07] MEDS: OLANZapine 10 MG TABLET PO SCH ×2 (08:10→16:54)
[2017-11-07 09:05] VITALS: BP 133/100
[2017-11-07 16:30] VITALS: BP 130/97
[2017-11-08 00:12] VITALS: BP 145/102
[2017-11-08] MEDS: ZOLPIDEM TARTRATE 10 MG TABLET PO PRN (00:14)
[2017-11-08] MEDS: HALOPERIDOL 5 MG TABLET PO PRN (00:59)
[2017-11-08] MEDS: LORazepam 2 MG TABLET PO PRN (00:59)
[2017-11-08] MEDS: OLANZapine 10 MG TABLET PO SCH ×2 (09:40→16:41)
[2017-11-08 10:36] VITALS: BP 118/75
[2017-11-08 14:38] LABS: GLUCOMETER DEV NAME(LOC) 3EI C; GLUCOSE,POINT OF CARE 102 MG/DL (70-110)
[2017-11-08 18:00] VITALS: BP 135/82
[2017-11-09 08:35] VITALS: BP 129/93
[2017-11-09] MEDS: OLANZapine 10 MG TABLET PO SCH ×2 (09:05→16:34)
[2017-11-09 17:13] VITALS: BP 115/82
[2017-11-10] MEDS: OLANZapine 10 MG TABLET PO SCH ×2 (08:38→16:37)
[2017-11-10 09:44] VITALS: BP 119/85
[2017-11-10 18:46] VITALS: BP 139/93
[2017-11-11 08:05] VITALS: BP 136/82
[2017-11-11] MEDS: OLANZapine 10 MG TABLET PO SCH ×2 (10:04→17:23)
[2017-11-11 16:49] VITALS: BP 114/76
[2017-11-12 00:34] VITALS: BP 142/103
[2017-11-12] MEDS: ZOLPIDEM TARTRATE 10 MG TABLET PO PRN (00:35)
[2017-11-12] MEDS: OLANZapine 10 MG TABLET PO SCH ×2 (08:15→16:42)
[2017-11-12 08:49] VITALS: BP 122/68
[2017-11-12 16:47] VITALS: BP 135/89
[2017-11-13 08:27] VITALS: BP 122/64
[2017-11-13] MEDS: OLANZapine 10 MG TABLET PO SCH ×2 (09:07→16:18)
[2017-11-13 19:27] VITALS: BP 117/71
[2017-11-14] MEDS: OLANZapine 10 MG TABLET PO SCH ×2 (09:11→17:05)
[2017-11-14 09:47] VITALS: BP 117/69
[2017-11-14 18:18] VITALS: BP 134/91
[2017-11-15 08:05] VITALS: BP 123/76
[2017-11-15] MEDS: OLANZapine 10 MG TABLET PO SCH ×2 (09:15→16:27)
[2017-11-15 16:30] VITALS: BP 128/76
[2017-11-16 10:04] VITALS: BP 116/72
[2017-11-16] MEDS: OLANZapine 10 MG TABLET PO SCH ×2 (10:09→16:36)
[2017-11-16 21:27] VITALS: BP 121/74
[2017-11-17] MEDS: OLANZapine 10 MG TABLET PO SCH ×2 (09:46→16:59)
[2017-11-17 12:10] VITALS: BP 130/77
[2017-11-17 17:07] VITALS: BP 122/65
[2017-11-18 05:56] VITALS: BP 135/74
[2017-11-18] MEDS: OLANZapine 10 MG TABLET PO SCH ×2 (08:57→17:02)
[2017-11-18 10:56] VITALS: BP 142/78
[2017-11-18 19:11] VITALS: BP 131/69
[2017-11-19] MEDS: OLANZapine 10 MG TABLET PO SCH ×2 (09:30→18:03)
[2017-11-19 09:33] VITALS: BP 148/97
[2017-11-19 21:04] VITALS: BP 133/88
[2017-11-20] MEDS: OLANZapine 10 MG TABLET PO SCH ×2 (08:40→16:32)
[2017-11-20 10:11] VITALS: BP 118/76
[2017-11-20 18:01] VITALS: BP 137/81
[2017-11-21 08:15] VITALS: BP 98/86
[2017-11-21] MEDS: OLANZapine 10 MG TABLET PO SCH ×2 (08:41→17:17)
[2017-11-21 17:30] VITALS: BP 123/68
[2017-11-22 08:11] VITALS: BP 112/72
[2017-11-22] MEDS: OLANZapine 10 MG TABLET PO SCH ×2 (10:47→17:13)
[2017-11-23 02:10] VITALS: BP 152/95
[2017-11-23 09:36] VITALS: BP 141/89
[2017-11-23] MEDS: OLANZapine 10 MG TABLET PO SCH ×2 (10:04→17:01)
[2017-11-23 19:22] VITALS: BP 131/81
[2017-11-24 02:00] VITALS: BP 147/96
[2017-11-24 08:45] VITALS: BP 122/70
[2017-11-24] MEDS: OLANZapine 10 MG TABLET PO SCH ×2 (09:33→17:05)
[2017-11-24 22:07] VITALS: BP 118/72
[2017-11-25 06:16] VITALS: BP 120/69
[2017-11-25 08:22] VITALS: BP 154/90
[2017-11-25] MEDS: OLANZapine 10 MG TABLET PO SCH ×2 (09:36→16:08)
[2017-11-25 17:03] VITALS: BP 114/77
[2017-11-26] MEDS: OLANZapine 10 MG TABLET PO SCH ×2 (09:26→17:17)
[2017-11-26 09:55] VITALS: BP 132/74
[2017-11-26 16:53] VITALS: BP 128/72
[2017-11-27 02:35] VITALS: BP 103/48
[2017-11-27 08:50] VITALS: BP 124/80
[2017-11-27] MEDS: OLANZapine 10 MG TABLET PO SCH ×2 (10:05→16:38)
[2017-11-27 17:12] VITALS: BP 126/77
[2017-11-28 05:52] VITALS: BP 121/79
[2017-11-28 08:43] VITALS: BP 141/64
[2017-11-28] MEDS: OLANZapine 10 MG TABLET PO SCH ×2 (10:01→17:48)
[2017-11-28] MEDS ORDERED: ZOLPIDEM TARTRATE 10 MG TABLET PO PRN (13:15)
[2017-11-28] MEDS ORDERED: LORazepam 2 MG TABLET PO PRN (13:15)
[2017-11-28 19:12] VITALS: BP 116/85
[2017-11-29 08:32] VITALS: BP 169/102
[2017-11-29] MEDS: OLANZapine 10 MG TABLET PO SCH ×2 (10:09→16:49)
[2017-11-29 19:26] VITALS: BP 124/74
[2017-11-30 00:25] VITALS: BP 136/77
[2017-11-30 09:13] VITALS: BP 129/90
[2017-11-30] MEDS: OLANZapine 10 MG TABLET PO SCH ×2 (10:06→16:25)
[2017-11-30 20:20] VITALS: BP 141/93
[2017-12-01 06:03] LABS: BASOPHILS % (AUTO) 1.2 % (0.0-2.0); EOSINOPHILS % (AUTO) 4.8 % (1.0-6.0); HEMATOCRIT 42.7 % (41-53); HEMOGLOBIN 14.7 g/dL (13.5-17.5); LYMPHOCYTES # (AUTO) 1.5 K/uL (1.0-4.8); LYMPHOCYTES % (AUTO) 32.4 % (22.0-44.0); MEAN CORPUSCULAR HEMOGLOBIN 30.8 pg (26.0-34.0); MEAN CORPUSCULAR HGB CONC 34.5 G/dL (31.0-37.0); MEAN CORPUSCULAR VOLUME 89 fL (80-100); MONOCYTES # (AUTO) 0.4 K/uL (0.1-1.0); MONOCYTES % (AUTO) 8.5 % (2.0-9.0); NEUTROPHILS # (AUTO) 2.5 K/uL (1.8-7.7); NEUTROPHILS % (AUTO) 53.1 % (40.0-70.0); PLATELET COUNT (AUTO) 298 K/uL (150-450); RED BLOOD CELL COUNT(AUTO) 4.79 MIL/uL (4.50-5.90); RED CELL DISTRIBUTION WIDTH 14.3 % (11.5-14.5)
[2017-12-01 06:19] LABS: ALANINE AMINOTRANSFERASE 33 U/L (12-78); ALBUMIN 3.4 g/dL (3.4-5.0); ALKALINE PHOSPHATASE 60 U/L (46-116); ANION GAP 5 mmol/L (8-16); ASPARTATE AMINOTRANSFERASE 13 U/L (15-37); BILIRUBIN,TOTAL 0.4 mg/dL (0.1-1.0); CALCIUM, TOTAL 9.3 mg/dL (8.8-10.5); CARBON DIOXIDE 31 mmol/L (22-29); CHLORIDE 107 mmol/L (98-107); CREATININE 0.77 mg/dL (0.60-1.30); GLOMERULAR FILTR. RATE CALC > 60 mL/min (>60); GLUCOSE,RANDOM 96 mg/dL (70-110); POTASSIUM 3.9 mmol/L (3.5-5.1); SODIUM SERUM 143 mmol/L (136-145); UREA NITROGEN, BLOOD 15 mg/dL (7-18)
[2017-12-01] MEDS: OLANZapine 10 MG TABLET PO SCH ×2 (08:25→17:14)
[2017-12-01 09:36] VITALS: BP 122/87
[2017-12-01 17:00] VITALS: BP 114/57
[2017-12-02] MEDS: OLANZapine 10 MG TABLET PO SCH ×2 (08:38→17:34)
[2017-12-02 09:25] VITALS: BP 139/90
[2017-12-02 16:15] VITALS: BP 123/73
[2017-12-03 08:30] VITALS: BP 142/84
[2017-12-03] MEDS: OLANZapine 10 MG TABLET PO SCH ×2 (10:01→16:27)
[2017-12-03 18:30] VITALS: BP 123/85
[2017-12-04] MEDS: OLANZapine 10 MG TABLET PO SCH ×2 (09:45→16:17)
[2017-12-04 12:31] VITALS: BP 154/87
[2017-12-04 22:08] VITALS: BP 124/78
[2017-12-05 01:35] VITALS: BP 122/64
[2017-12-05] MEDS: OLANZapine 10 MG TABLET PO SCH ×2 (09:27→16:30)
[2017-12-05 09:31] VITALS: BP 120/81
[2017-12-05 16:49] VITALS: BP 114/57
[2017-12-06 08:06] VITALS: BP 98/74
[2017-12-06] MEDS: OLANZapine 10 MG TABLET PO SCH ×2 (09:27→16:58)
[2017-12-06 19:07] VITALS: BP 96/65
[2017-12-07] MEDS: OLANZapine 10 MG TABLET PO SCH ×2 (08:47→16:38)
[2017-12-07 11:06] VITALS: BP 101/68
[2017-12-07 19:48] VITALS: BP 100/68
[2017-12-08] MEDS: OLANZapine 10 MG TABLET PO SCH ×2 (08:32→16:53)
[2017-12-08 09:13] VITALS: BP 134/84
[2017-12-08 19:48] VITALS: BP 117/69
[2017-12-09] MEDS: OLANZapine 10 MG TABLET PO SCH ×2 (09:48→17:37)
[2017-12-09 10:37] VITALS: BP 116/77
[2017-12-09 19:11] VITALS: BP 121/80
[2017-12-10] MEDS: OLANZapine 10 MG TABLET PO SCH ×2 (08:28→17:39)
[2017-12-10 09:21] VITALS: BP 97/62
[2017-12-10 18:17] VITALS: BP 114/79
[2017-12-11 09:37] VITALS: BP 116/84
[2017-12-11] MEDS: OLANZapine 10 MG TABLET PO SCH ×2 (09:41→16:15)
[2017-12-11 17:00] VITALS: BP 130/77
[2017-12-12] MEDS: OLANZapine 10 MG TABLET PO SCH ×2 (08:44→16:52)
[2017-12-12 09:37] VITALS: BP 131/62
[2017-12-12 16:30] VITALS: BP 125/74
[2017-12-13 08:14] VITALS: BP 110/72
[2017-12-13] MEDS: OLANZapine 10 MG TABLET PO SCH ×2 (08:59→16:36)
[2017-12-13 17:48] VITALS: BP 122/88
[2017-12-14 08:05] VITALS: BP 121/83
[2017-12-14] MEDS: OLANZapine 10 MG TABLET PO SCH ×2 (09:19→16:34)
[2017-12-14 17:29] VITALS: BP 125/78
[2017-12-15 08:05] VITALS: BP 136/90
[2017-12-15] MEDS: OLANZapine 10 MG TABLET PO SCH ×2 (10:14→16:24)
[2017-12-15 16:41] VITALS: BP 115/80
[2017-12-16] MEDS: OLANZapine 10 MG TABLET PO SCH ×2 (09:14→16:43)
[2017-12-16 17:16] VITALS: BP 124/78
[2017-12-17] MEDS: OLANZapine 10 MG TABLET PO SCH ×2 (08:47→16:34)
[2017-12-17 09:00] VITALS: BP 119/81
[2017-12-17 19:41] VITALS: BP 147/77
[2017-12-18 09:00] VITALS: BP 140/82
[2017-12-18] MEDS: OLANZapine 10 MG TABLET PO SCH ×2 (09:55→17:06)
[2017-12-18 18:24] VITALS: BP 128/73
[2017-12-19 08:33] VITALS: BP 126/80
[2017-12-19] MEDS: OLANZapine 10 MG TABLET PO SCH ×2 (10:14→17:51)
[2017-12-20 08:05] VITALS: BP 118/77
[2017-12-20] MEDS: OLANZapine 10 MG TABLET PO SCH ×2 (09:14→17:04)
[2017-12-20 16:30] VITALS: BP 120/89
[2017-12-21] MEDS: OLANZapine 10 MG TABLET PO SCH ×2 (08:20→16:54)
[2017-12-21 10:40] VITALS: BP 126/57
[2017-12-21 16:31] VITALS: BP 125/72
[2017-12-22 09:00] VITALS: BP 139/99
[2017-12-22] MEDS: OLANZapine 10 MG TABLET PO SCH ×2 (09:25→16:05)
[2017-12-22] MEDS ORDERED: OLAN10TA3 PO (10:43)
== END 2017-12-22 16:15 | DRG 750 ==
LOC: EMS 13:48 → 3EI 18:19
PROVIDERS: ADMIT Psychiatry & Neurology Child & Adolescent Psychiatry; ATTEND Psychiatry & Neurology Child & Adolescent Psychiatry
PROC: 3E0234Z Introduction of Serum, Toxoid and Vaccine into Muscle, Percutaneous Approach (ICD-10-PCS; principal; 2017-12-12)
DX: F20.0 Paranoid schizophrenia (principal); Z91.14 Patient's other noncompliance with medication regimen; E55.9 Vitamin D deficiency, unspecified; Z59.0 Homelessness; E87.6 Hypokalemia; J45.909 Unspecified asthma, uncomplicated; D64.9 Anemia, unspecified; F17.200 Nicotine dependence, unspecified, uncomplicated; F12.10 Cannabis abuse, uncomplicated; F17.210 Nicotine dependence, cigarettes, uncomplicated; F94.0 Selective mutism; R63.3 Feeding difficulties; Z23 Encounter for immunization
CPT/HCPCS: 80307; 83036; 84132; 84443; 87081; 90686; 93005; 99285; G0480

== ENCOUNTER 2021-05-19 20:17 | Emergency (ER) | payer MEDICAID, OTHER ==
[~2021-05-19] VITALS: Ht 170.2 cm; Wt 62.0 kg
[~2021-05-19 20:17] MED LIST changes: +OLAN10TA74 PO; -PALI234D IM; -PALI3 PO
[2021-05-19 23:29] LABS: BASOPHILS % (AUTO) 0.8 % (0.0-2.0); EOSINOPHILS % (AUTO) 1.2 % (1.0-6.0); HEMATOCRIT 49.4 % (41-53); HEMOGLOBIN 16.3 g/dL (13.5-17.5); LYMPHOCYTES # (AUTO) 1.9 K/uL (1.0-4.8); MEAN CORPUSCULAR HGB CONC 32.9 G/dL (31.0-37.0); MEAN CORPUSCULAR VOLUME 91 fL (80-100); MONOCYTES # (AUTO) 0.7 K/uL (0.1-1.0); MONOCYTES % (AUTO) 8.3 % (2.0-9.0); NEUTROPHILS # (AUTO) 6.1 K/uL (1.8-7.7); NEUTROPHILS % (AUTO) 68.7 % (40.0-70.0); PLATELET COUNT (AUTO) 309 K/uL (150-450); RED BLOOD CELL COUNT(AUTO) 5.42 MIL/uL (4.50-5.90); RED CELL DISTRIBUTION WIDTH 14.3 % (11.5-14.5)
[2021-05-19 23:39] LABS: ANION GAP 9 mmol/L (8-16); CALCIUM, TOTAL 9.3 mg/dL (8.8-10.5); CARBON DIOXIDE 29 mmol/L (22-29); CHLORIDE 101 mmol/L (98-107); CREATININE 0.83 mg/dL (0.60-1.30); GLOMERULAR FILTR. RATE CALC > 60 mL/min (>60); GLUCOSE,RANDOM 100 mg/dL (70-110); POTASSIUM 3.5 mmol/L (3.5-5.1); SODIUM SERUM 139 mmol/L (136-145); UREA NITROGEN, BLOOD 22 mg/dL (7-18)
[2021-05-19 23:45] LABS: ALANINE AMINOTRANSFERASE 15 U/L (12-78); ALBUMIN 4.2 g/dL (3.4-5.0); ALKALINE PHOSPHATASE 76 U/L (46-116); ASPARTATE AMINOTRANSFERASE 14 U/L (15-37); BILIRUBIN,TOTAL 0.6 mg/dL (0.1-1.0); TOTAL PROTEIN, SERUM 8.1 g/dL (6.4-8.2)
[2021-05-20] MEDS ORDERED: LORazepam 1 MG TABLET PO ONE (05:00)
[2021-05-20 06:45] VITALS: BP 150/94
== END 2021-05-20 07:15 | disposition home or self-care (01) ==
LOC: EMS 20:21
DX: F15.10 Other stimulant abuse, uncomplicated (principal); F20.9 Schizophrenia, unspecified; F17.210 Nicotine dependence, cigarettes, uncomplicated; Z79.899 Other long term (current) drug therapy
CPT/HCPCS: 36415; 80053; 85025; 99283; G0480

== ENCOUNTER 2022-05-06 10:31 | Inpatient (IN) | payer MEDICAID ==
[~2022-05-06] VITALS: Ht 160 cm; Wt 51.3 kg
[2022-05-06] MEDS ORDERED: CeFAZolin 2 GM/DEXTROSE 50 ML IV ONE (11:30)
[2022-05-06] MEDS ORDERED: RINGERS SOLUTION,LACTATED 1,000 ML IV ONE (11:47)
[2022-05-06] MEDS ORDERED: MIDAZOLAM HCL 2 MG/2 ML VIAL IVP ONE (12:00)
[2022-05-06] MEDS ORDERED: ONDANSETRON HCL 4 MG/2 ML VIAL IVP ONE (12:00)
[2022-05-06] MEDS ORDERED: FentaNYL CITRATE PF 100 MCG/2 ML VIAL IVP ONE (12:00)
[2022-05-06 12:20] LABS: COVID AG,FIA SOURCE NASOPHARYNGEAL
[2022-05-06] MEDS ORDERED: MUPIROCIN CALCIUM 2% 22 GM OINTMENT ONE (12:39)
[2022-05-06] MEDS ORDERED: HYDROCODONE/ACETAMINOPHEN 5-325 MG TABLET PO PRN ×2 (13:00)
[2022-05-06] MEDS ORDERED: BISACODYL 10 MG RECTAL RECTAL SUPPOSITORY PR PRN (13:00)
[2022-05-06] MEDS ORDERED: HYDROmorphone HCL 2 MG/ML SYRINGE IVP PRN (13:00)
[2022-05-06] MEDS ORDERED: ONDANSETRON HCL 4 MG/2 ML VIAL IVP PRN (13:00)
[2022-05-06] MEDS ORDERED: HEPARIN SODIUM,PORCINE 5,000 UNITS/ML VIAL SQ SCH (13:00)
[2022-05-06] MEDS: CefTRIAXone 1 GM/DEXTROSE 50 ML IV SCH (14:00)
[2022-05-06] MEDS ORDERED: ALBUTEROL SULFATE 2.5 MG/0.5 ML NEB SOLUTION NEB PRN (14:15)
[2022-05-06] MEDS ORDERED: IPRATROPIUM BROMIDE 0.5 MG/2.5 ML NEB SOLUTION NEB PRN (14:15)
[2022-05-06 14:24] VITALS: BP 155/93
[2022-05-06] MEDS ORDERED: TETANUS IMMUNE GLOBULIN 250 UNITS/SYRINGE IM. ONE (14:45)
[2022-05-06] MEDS ORDERED: VANCOMYCIN 1GM/WATER(PEG/NADA) 200 ML IV ONE (15:15)
[2022-05-06 15:58] VITALS: BP 148/88
[2022-05-06 15:58] LABS: BASOPHILS % (AUTO) 0.9 % (0.0-2.0); HEMATOCRIT 41.1 % (41-53); HEMOGLOBIN 13.6 g/dL (13.5-17.5); LYMPHOCYTES % (AUTO) 21.1 % (22.0-44.0); MEAN CORPUSCULAR HEMOGLOBIN 29.9 pg (26.0-34.0); MEAN CORPUSCULAR VOLUME 90 fL (80-100); MONOCYTES # (AUTO) 0.6 K/uL (0.1-1.0); NEUTROPHILS # (AUTO) 2.9 K/uL (1.8-7.7); PLATELET COUNT (AUTO) 363 K/uL (150-450); RED BLOOD CELL COUNT(AUTO) 4.55 MIL/uL (4.50-5.90); RED CELL DISTRIBUTION WIDTH 14.1 % (11.5-14.5)
[2022-05-06] MEDS: HEPARIN SODIUM,PORCINE 5,000 UNITS/ML VIAL SQ SCH ×2 (16:20→23:38)
[2022-05-06 16:54] LABS: ANION GAP 7 mmol/L (8-16); CALCIUM, TOTAL 8.7 mg/dL (8.8-10.5); CARBON DIOXIDE 31 mmol/L (22-29); CHLORIDE 104 mmol/L (98-107); CREATININE 0.66 mg/dL (0.60-1.30); GLOMERULAR FILTR. RATE CALC > 60 mL/min (>60); GLUCOSE,RANDOM 88 mg/dL (70-110); POTASSIUM 3.8 mmol/L (3.5-5.1); SODIUM SERUM 142 mmol/L (136-145); UREA NITROGEN, BLOOD 13 mg/dL (7-18)
[2022-05-06 17:00] LABS: ALANINE AMINOTRANSFERASE 16 U/L (12-78); ALKALINE PHOSPHATASE 58 U/L (46-116); ASPARTATE AMINOTRANSFERASE 16 U/L (15-37); BILIRUBIN,TOTAL 0.1 mg/dL (0.1-1.0); TOTAL PROTEIN, SERUM 7.1 g/dL (6.4-8.2)
[2022-05-06] MEDS: OXYGEN THERAPY IH SCH (20:00)
[2022-05-06 21:18] VITALS: BP 139/68
[2022-05-07 05:30] VITALS: BP 143/75
[2022-05-07] MEDS: ACETAMINOPHEN 325 MG TABLET PO PRN ×2 (05:51→09:56)
[2022-05-07] MEDS: OXYGEN THERAPY IH SCH ×2 (08:00→20:00)
[2022-05-07 08:04] VITALS: BP 128/79
[2022-05-07 08:04] LABS: BASOPHILS % (AUTO) 1.1 % (0.0-2.0); EOSINOPHILS % (AUTO) 1.7 % (1.0-6.0); HEMATOCRIT 38.9 % (41-53); HEMOGLOBIN 13.1 g/dL (13.5-17.5); LYMPHOCYTES # (AUTO) 1.1 K/uL (1.0-4.8); LYMPHOCYTES % (AUTO) 23.9 % (22.0-44.0); MEAN CORPUSCULAR HEMOGLOBIN 30.2 pg (26.0-34.0); MEAN CORPUSCULAR HGB CONC 33.8 G/dL (31.0-37.0); MEAN CORPUSCULAR VOLUME 89 fL (80-100); MONOCYTES # (AUTO) 0.5 K/uL (0.1-1.0); MONOCYTES % (AUTO) 11.3 % (2.0-9.0); NEUTROPHILS # (AUTO) 2.8 K/uL (1.8-7.7); PLATELET COUNT (AUTO) 366 K/uL (150-450); RED BLOOD CELL COUNT(AUTO) 4.36 MIL/uL (4.50-5.90); RED CELL DISTRIBUTION WIDTH 14.1 % (11.5-14.5)
[2022-05-07] MEDS: VANCOMYCIN HCL 750 MG in DEXTROSE 5%-WATER 250 ML IV SCH ×2 (08:11→20:00)
[2022-05-07] MEDS: HEPARIN SODIUM,PORCINE 5,000 UNITS/ML VIAL SQ SCH ×3 (08:12→23:12)
[2022-05-07 08:34] LABS: ANION GAP 8 mmol/L (8-16); CALCIUM, TOTAL 8.7 mg/dL (8.8-10.5); CARBON DIOXIDE 29 mmol/L (22-29); CHLORIDE 104 mmol/L (98-107); CREATININE 0.75 mg/dL (0.60-1.30); GLOMERULAR FILTR. RATE CALC > 60 mL/min (>60); GLUCOSE,RANDOM 112 mg/dL (70-110); POTASSIUM 3.7 mmol/L (3.5-5.1); SODIUM SERUM 141 mmol/L (136-145); UREA NITROGEN, BLOOD 14 mg/dL (7-18)
[2022-05-07 10:00] LABS: APPEARANCE,URINE CLEAR (CLEAR); BILIRUBIN,URINE NEGATIVE (NEGATIVE); GLUCOSE, URINE (UA) NEGATIVE (NEGATIVE); KETONES,URINE NEGATIVE (NEGATIVE); LEUKOCYTE ESTERASE ,URINE MODERATE (NEGATIVE); NITRATE,URINE NEGATIVE (NEGATIVE); OCCULT BLOOD,URINE SMALL (NEGATIVE); PH,URINE 6.5 (5.0-8.0); PROTEIN,URINE NEGATIVE (NEGATIVE); SPECIFIC GRAVITIY, URINE 1.019 (1.003-1.030); UROBILINOGEN,URINE <=1.0 mg/dL (<=1.0)
[2022-05-07 10:23] LABS: BACTERIA,URINE Few /HPF (None Seen); SQUAMOUS EPITHELIAL CELL,UR Few /LPF (None Seen)
[2022-05-07] MEDS: CefTRIAXone 1 GM/DEXTROSE 50 ML IV SCH (14:01)
[2022-05-07 15:24] VITALS: BP 133/83
[2022-05-07 15:36] LABS: AMPHET/METH SCREEN,URINE NEGATIVE (NEGATIVE); BARBITURATE SCREEN, URINE NEGATIVE (NEGATIVE); BENZODIAZEPINES SCREEN,URINE POSITIVE (NEGATIVE); CANNABINOID SCREEN,URINE NEGATIVE (NEGATIVE); COCAINE SCREEN,URINE NEGATIVE (NEGATIVE); METHADONE SCREEN, URINE NEGATIVE (NEGATIVE); OPIATE SCREEN,URINE NEGATIVE (NEGATIVE); PHENCYCLIDINE SCREEN,URINE NEGATIVE (NEGATIVE)
[2022-05-07 21:28] VITALS: BP 122/74
[2022-05-08] MEDS: ACETAMINOPHEN 325 MG TABLET PO PRN (04:21)
[2022-05-08 06:10] VITALS: BP 130/64
[2022-05-08] MEDS ORDERED: TRAZ-252 PO (07:12)
[2022-05-08] MEDS ORDERED: MIRT-89 PO (07:12)
[2022-05-08] MEDS ORDERED: BENZ0.5T49 PO (07:12)
[2022-05-08] MEDS ORDERED: PALI6TAB15 PO (07:12)
[2022-05-08] MEDS ORDERED: OLAN10TA74 PO (07:12)
[2022-05-08 07:44] LABS: ANION GAP 7 mmol/L (8-16); CALCIUM, TOTAL 8.6 mg/dL (8.8-10.5); CARBON DIOXIDE 28 mmol/L (22-29); CHLORIDE 105 mmol/L (98-107); CREATININE 0.76 mg/dL (0.60-1.30); GLOMERULAR FILTR. RATE CALC > 60 mL/min (>60); GLUCOSE,RANDOM 124 mg/dL (70-110); POTASSIUM 4.2 mmol/L (3.5-5.1); SODIUM SERUM 140 mmol/L (136-145); UREA NITROGEN, BLOOD 15 mg/dL (7-18); VANCOMYCIN,RANDOM 7.2 mcg/mL (25.0-50.0)
[2022-05-08] MEDS: OXYGEN THERAPY IH SCH ×2 (08:00→19:46)
[2022-05-08] MEDS: VANCOMYCIN HCL 750 MG in DEXTROSE 5%-WATER 250 ML IV SCH ×3 (08:18→23:33)
[2022-05-08] MEDS: HEPARIN SODIUM,PORCINE 5,000 UNITS/ML VIAL SQ SCH ×3 (08:19→23:32)
[2022-05-08 09:53] VITALS: BP 137/72
[2022-05-08] MEDS: CefTRIAXone 1 GM/DEXTROSE 50 ML IV SCH (13:26)
[2022-05-08] MEDS: OLANZapine 10 MG TABLET PO SCH ×2 (13:26→21:35)
[2022-05-08 17:01] VITALS: BP 132/78
[2022-05-08 20:50] VITALS: BP 128/52
[2022-05-08] MEDS: MIRTAZAPINE 15 MG TABLET PO SCH (21:35)
[2022-05-08] MEDS: TraZODone HCL 50 MG TABLET PO SCH (21:35)
[2022-05-09 04:21] VITALS: BP_SYST 121; BP_DIAS 59; BP_DIAS 64
[2022-05-09] MEDS: OXYGEN THERAPY IH SCH ×2 (08:00→20:31)
[2022-05-09 08:14] VITALS: BP 130/70
[2022-05-09] MEDS: OLANZapine 10 MG TABLET PO SCH ×2 (08:16→20:29)
[2022-05-09] MEDS: HEPARIN SODIUM,PORCINE 5,000 UNITS/ML VIAL SQ SCH ×3 (08:16→23:21)
[2022-05-09] MEDS: VANCOMYCIN HCL 750 MG in DEXTROSE 5%-WATER 250 ML IV SCH ×3 (08:22→23:22)
[2022-05-09 08:26] LABS: BASOPHILS % (AUTO) 0.9 % (0.0-2.0); EOSINOPHILS % (AUTO) 0.5 % (1.0-6.0); HEMATOCRIT 38.4 % (41-53); HEMOGLOBIN 12.9 g/dL (13.5-17.5); LYMPHOCYTES # (AUTO) 1.2 K/uL (1.0-4.8); LYMPHOCYTES % (AUTO) 29.3 % (22.0-44.0); MEAN CORPUSCULAR HEMOGLOBIN 29.9 pg (26.0-34.0); MEAN CORPUSCULAR HGB CONC 33.6 G/dL (31.0-37.0); MEAN CORPUSCULAR VOLUME 89 fL (80-100); MONOCYTES # (AUTO) 0.4 K/uL (0.1-1.0); MONOCYTES % (AUTO) 10.4 % (2.0-9.0); NEUTROPHILS # (AUTO) 2.4 K/uL (1.8-7.7); NEUTROPHILS % (AUTO) 58.9 % (40.0-70.0); PLATELET COUNT (AUTO) 312 K/uL (150-450); RED BLOOD CELL COUNT(AUTO) 4.31 MIL/uL (4.50-5.90)
[2022-05-09 08:35] LABS: ANION GAP 5 mmol/L (8-16); CALCIUM, TOTAL 8.7 mg/dL (8.8-10.5); CARBON DIOXIDE 30 mmol/L (22-29); CHLORIDE 105 mmol/L (98-107); CREATININE 0.66 mg/dL (0.60-1.30); GLOMERULAR FILTR. RATE CALC > 60 mL/min (>60); GLUCOSE,RANDOM 98 mg/dL (70-110); POTASSIUM 4.1 mmol/L (3.5-5.1); SODIUM SERUM 140 mmol/L (136-145); UREA NITROGEN, BLOOD 11 mg/dL (7-18)
[2022-05-09 10:06] LABS: COVID AG,FIA SOURCE NASAL SWAB
[2022-05-09] MEDS: CefTRIAXone 1 GM/DEXTROSE 50 ML IV SCH (13:42)
[2022-05-09 15:03] VITALS: BP 128/72
[2022-05-09 19:30] VITALS: BP 126/61
[2022-05-09] MEDS: TraZODone HCL 50 MG TABLET PO SCH (20:29)
[2022-05-09] MEDS: MIRTAZAPINE 15 MG TABLET PO SCH (20:29)
[2022-05-10 04:55] VITALS: BP 121/69
[2022-05-10 07:42] VITALS: BP 124/70
[2022-05-10 08:25] LABS: ANION GAP 5 mmol/L (8-16); CALCIUM, TOTAL 8.7 mg/dL (8.8-10.5); CARBON DIOXIDE 31 mmol/L (22-29); CHLORIDE 101 mmol/L (98-107); CREATININE 0.62 mg/dL (0.60-1.30); GLOMERULAR FILTR. RATE CALC > 60 mL/min (>60); GLUCOSE,RANDOM 96 mg/dL (70-110); POTASSIUM 4.1 mmol/L (3.5-5.1); SODIUM SERUM 137 mmol/L (136-145); UREA NITROGEN, BLOOD 12 mg/dL (7-18)
[2022-05-10 08:39] LABS: VANCOMYCIN,RANDOM 13.9 mcg/mL (25.0-50.0)
[2022-05-10] MEDS: OLANZapine 10 MG TABLET PO SCH ×2 (09:10→20:45)
[2022-05-10] MEDS: VANCOMYCIN HCL 750 MG in DEXTROSE 5%-WATER 250 ML IV SCH ×3 (09:10→23:48)
[2022-05-10] MEDS: HEPARIN SODIUM,PORCINE 5,000 UNITS/ML VIAL SQ SCH ×3 (09:10→23:48)
[2022-05-10] MEDS: CefTRIAXone 1 GM/DEXTROSE 50 ML IV SCH (15:05)
[2022-05-10 15:13] VITALS: BP 126/72
[2022-05-10] MEDS ORDERED: LEVO-72 PO (18:40)
[2022-05-10] MEDS ORDERED: MIRT-89 PO (18:41)
[2022-05-10] MEDS ORDERED: OLAN10TA74 PO (18:42)
[2022-05-10] MEDS: OXYGEN THERAPY IH SCH (20:00)
[2022-05-10] MEDS: TraZODone HCL 50 MG TABLET PO SCH (20:45)
[2022-05-10] MEDS: MIRTAZAPINE 15 MG TABLET PO SCH (20:45)
[2022-05-11 04:50] VITALS: BP 143/70
[2022-05-11] MEDS: OXYGEN THERAPY IH SCH ×2 (08:00→20:07)
[2022-05-11] MEDS: HEPARIN SODIUM,PORCINE 5,000 UNITS/ML VIAL SQ SCH ×3 (08:24→23:13)
[2022-05-11] MEDS: VANCOMYCIN HCL 750 MG in DEXTROSE 5%-WATER 250 ML IV SCH ×3 (08:25→23:13)
[2022-05-11] MEDS: OLANZapine 10 MG TABLET PO SCH ×2 (08:27→20:05)
[2022-05-11 08:39] LABS: ANION GAP 7 mmol/L (8-16); CALCIUM, TOTAL 8.6 mg/dL (8.8-10.5); CARBON DIOXIDE 30 mmol/L (22-29); CHLORIDE 106 mmol/L (98-107); CREATININE 0.66 mg/dL (0.60-1.30); GLOMERULAR FILTR. RATE CALC > 60 mL/min (>60); GLUCOSE,RANDOM 102 mg/dL (70-110); POTASSIUM 4.2 mmol/L (3.5-5.1); SODIUM SERUM 143 mmol/L (136-145); UREA NITROGEN, BLOOD 15 mg/dL (7-18)
[2022-05-11 12:34] VITALS: BP 132/75
[2022-05-11] MEDS: CefTRIAXone 1 GM/DEXTROSE 50 ML IV SCH (13:37)
[2022-05-11 16:00] VITALS: BP 126/76
[2022-05-11 20:02] VITALS: BP 136/51
[2022-05-11] MEDS: MIRTAZAPINE 15 MG TABLET PO SCH (20:05)
[2022-05-11] MEDS: TraZODone HCL 50 MG TABLET PO SCH (20:05)
[2022-05-12 04:03] VITALS: BP 112/76
[2022-05-12 07:32] VITALS: BP 134/81
[2022-05-12] MEDS: OXYGEN THERAPY IH SCH ×2 (08:00→20:15)
[2022-05-12 08:03] LABS: ANION GAP 6 mmol/L (8-16); CALCIUM, TOTAL 9.1 mg/dL (8.8-10.5); CARBON DIOXIDE 32 mmol/L (22-29); CHLORIDE 105 mmol/L (98-107); CREATININE 0.74 mg/dL (0.60-1.30); GLOMERULAR FILTR. RATE CALC > 60 mL/min (>60); GLUCOSE,RANDOM 105 mg/dL (70-110); POTASSIUM 4.2 mmol/L (3.5-5.1); SODIUM SERUM 143 mmol/L (136-145); UREA NITROGEN, BLOOD 17 mg/dL (7-18)
[2022-05-12] MEDS: OLANZapine 10 MG TABLET PO SCH ×2 (08:04→20:14)
[2022-05-12] MEDS: HEPARIN SODIUM,PORCINE 5,000 UNITS/ML VIAL SQ SCH ×3 (08:04→23:21)
[2022-05-12] MEDS: VANCOMYCIN HCL 750 MG in DEXTROSE 5%-WATER 250 ML IV SCH ×3 (08:04→23:21)
[2022-05-12] MEDS: CefTRIAXone 1 GM/DEXTROSE 50 ML IV SCH ×2 (13:15→16:11)
[2022-05-12 14:57] LABS: COVID AG,FIA SOURCE NASOPHARYNGEAL
[2022-05-12 15:37] VITALS: BP 128/55
[2022-05-12 19:39] VITALS: BP 142/59
[2022-05-12] MEDS: MIRTAZAPINE 15 MG TABLET PO SCH (20:15)
[2022-05-12] MEDS: TraZODone HCL 50 MG TABLET PO SCH (20:15)
[2022-05-13 04:55] VITALS: BP 126/85
[2022-05-13 07:37] VITALS: BP 134/81
[2022-05-13 07:57] LABS: ANION GAP 3 mmol/L (8-16); CALCIUM, TOTAL 8.7 mg/dL (8.8-10.5); CARBON DIOXIDE 35 mmol/L (22-29); CHLORIDE 104 mmol/L (98-107); CREATININE 0.82 mg/dL (0.60-1.30); GLOMERULAR FILTR. RATE CALC > 60 mL/min (>60); GLUCOSE,RANDOM 190 mg/dL (70-110); POTASSIUM 4.5 mmol/L (3.5-5.1); SODIUM SERUM 142 mmol/L (136-145); UREA NITROGEN, BLOOD 16 mg/dL (7-18)
[2022-05-13] MEDS: OXYGEN THERAPY IH SCH ×2 (08:00→20:03)
[2022-05-13] MEDS: VANCOMYCIN HCL 750 MG in DEXTROSE 5%-WATER 250 ML IV SCH ×3 (08:03→23:39)
[2022-05-13] MEDS: OLANZapine 10 MG TABLET PO SCH ×2 (08:03→20:02)
[2022-05-13] MEDS: HEPARIN SODIUM,PORCINE 5,000 UNITS/ML VIAL SQ SCH ×3 (08:04→23:39)
[2022-05-13] MEDS: CefTRIAXone 1 GM/DEXTROSE 50 ML IV SCH (14:19)
[2022-05-13 15:21] VITALS: BP 146/76
[2022-05-13] MEDS: MIRTAZAPINE 15 MG TABLET PO SCH (20:02)
[2022-05-13] MEDS: TraZODone HCL 50 MG TABLET PO SCH (20:02)
[2022-05-13 20:14] VITALS: BP 141/74
[2022-05-14 04:46] VITALS: BP 136/79
[2022-05-14] MEDS: OXYGEN THERAPY IH SCH (08:00)
[2022-05-14 08:26] VITALS: BP 125/65
[2022-05-14] MEDS: OLANZapine 10 MG TABLET PO SCH ×2 (09:03→20:11)
[2022-05-14] MEDS: VANCOMYCIN HCL 750 MG in DEXTROSE 5%-WATER 250 ML IV SCH ×3 (09:03→23:45)
[2022-05-14] MEDS: HEPARIN SODIUM,PORCINE 5,000 UNITS/ML VIAL SQ SCH ×3 (09:04→23:45)
[2022-05-14] MEDS: CefTRIAXone 1 GM/DEXTROSE 50 ML IV SCH (13:18)
[2022-05-14] MEDS ORDERED: SODIUM CHLORIDE 0.9% 500 ML IV ONE (14:52)
[2022-05-14 16:03] VITALS: BP 123/61
[2022-05-14] MEDS: MIRTAZAPINE 15 MG TABLET PO SCH (20:11)
[2022-05-14] MEDS: TraZODone HCL 50 MG TABLET PO SCH (20:11)
[2022-05-14 21:06] VITALS: BP 123/71
[2022-05-15 05:38] VITALS: BP 139/86
[2022-05-15 07:17] LABS: COVID AG,FIA SOURCE NASAL SWAB
[2022-05-15] MEDS: OXYGEN THERAPY IH SCH (08:00)
[2022-05-15 08:11] LABS: ANION GAP 5 mmol/L (8-16); CALCIUM, TOTAL 8.7 mg/dL (8.8-10.5); CARBON DIOXIDE 30 mmol/L (22-29); CHLORIDE 106 mmol/L (98-107); CREATININE 0.64 mg/dL (0.60-1.30); GLOMERULAR FILTR. RATE CALC > 60 mL/min (>60); GLUCOSE,RANDOM 95 mg/dL (70-110); POTASSIUM 4.4 mmol/L (3.5-5.1); SODIUM SERUM 141 mmol/L (136-145); UREA NITROGEN, BLOOD 16 mg/dL (7-18)
[2022-05-15] MEDS: VANCOMYCIN HCL 750 MG in DEXTROSE 5%-WATER 250 ML IV SCH ×3 (08:22→23:07)
[2022-05-15] MEDS: OLANZapine 10 MG TABLET PO SCH ×2 (08:22→20:06)
[2022-05-15] MEDS: HEPARIN SODIUM,PORCINE 5,000 UNITS/ML VIAL SQ SCH ×3 (08:22→23:08)
[2022-05-15 08:29] VITALS: BP 130/80
[2022-05-15] MEDS: CefTRIAXone 1 GM/DEXTROSE 50 ML IV SCH (14:37)
[2022-05-15 16:03] VITALS: BP 125/69
[2022-05-15] MEDS: TraZODone HCL 50 MG TABLET PO SCH (20:05)
[2022-05-15] MEDS: MIRTAZAPINE 15 MG TABLET PO SCH (20:05)
[2022-05-15 21:03] VITALS: BP 140/73
[2022-05-16 03:49] VITALS: BP 143/99
[2022-05-16 08:17] VITALS: BP 160/99
[2022-05-16] MEDS: VANCOMYCIN HCL 750 MG in DEXTROSE 5%-WATER 250 ML IV SCH ×3 (08:51→23:55)
[2022-05-16] MEDS: HEPARIN SODIUM,PORCINE 5,000 UNITS/ML VIAL SQ SCH ×3 (08:51→23:56)
[2022-05-16] MEDS: OLANZapine 10 MG TABLET PO SCH ×2 (08:51→21:33)
[2022-05-16] MEDS: CefTRIAXone 1 GM/DEXTROSE 50 ML IV SCH (14:14)
[2022-05-16 16:00] VITALS: BP 131/81
[2022-05-16 20:09] VITALS: BP 118/70
[2022-05-16] MEDS: TraZODone HCL 50 MG TABLET PO SCH (21:33)
[2022-05-16] MEDS: MIRTAZAPINE 15 MG TABLET PO SCH (21:33)
[2022-05-17 04:51] VITALS: BP 123/82
[2022-05-17 07:43] VITALS: BP 121/81
[2022-05-17 08:18] LABS: ANION GAP 7 mmol/L (8-16); CALCIUM, TOTAL 8.7 mg/dL (8.8-10.5); CARBON DIOXIDE 31 mmol/L (22-29); CHLORIDE 104 mmol/L (98-107); CREATININE 0.73 mg/dL (0.60-1.30); GLOMERULAR FILTR. RATE CALC > 60 mL/min (>60); GLUCOSE,RANDOM 98 mg/dL (70-110); POTASSIUM 4.2 mmol/L (3.5-5.1); SODIUM SERUM 142 mmol/L (136-145); UREA NITROGEN, BLOOD 15 mg/dL (7-18); VANCOMYCIN,RANDOM 16.8 mcg/mL (25.0-50.0)
[2022-05-17] MEDS: OLANZapine 10 MG TABLET PO SCH (08:51)
[2022-05-17] MEDS: HEPARIN SODIUM,PORCINE 5,000 UNITS/ML VIAL SQ SCH ×2 (08:52→15:47)
[2022-05-17] MEDS: VANCOMYCIN HCL 750 MG in DEXTROSE 5%-WATER 250 ML IV SCH ×2 (09:46→15:47)
[2022-05-17] MEDS ORDERED: SODIUM CHLORIDE 0.9% 250 ML IV ONE (13:55)
[2022-05-17] MEDS: CefTRIAXone 1 GM/DEXTROSE 50 ML IV SCH (14:00)
[2022-05-17 15:09] VITALS: BP 131/77
== END 2022-05-17 16:00 | disposition home health service (06) | DRG 483 ==
LOC: EMS 10:37 → AHU 12:54 → 6N 13:59
PROVIDERS: ADMIT Internal Medicine; ATTEND Internal Medicine
PROC: 0TQD8ZZ Repair Urethra, Via Natural or Artificial Opening Endoscopic (ICD-10-PCS; 2022-05-06)
PROC: 0VCSXZZ Extirpation of Matter from Penis, External Approach (ICD-10-PCS; 2022-05-06)
PROC: 0VBS0ZZ Excision of Penis, Open Approach (ICD-10-PCS; principal; 2022-05-06 12:00)
DX: T19.4XXA Foreign body in penis, initial encounter (principal); U07.1 COVID-19; S37.30XA Unspecified injury of urethra, initial encounter; F20.0 Paranoid schizophrenia; F20.9 Schizophrenia, unspecified; F15.10 Other stimulant abuse, uncomplicated; N40.0 Benign prostatic hyperplasia without lower urinary tract symptoms; N36.8 Other specified disorders of urethra; N48.89 Other specified disorders of penis; X58.XXXA Exposure to other specified factors, initial encounter; Z87.891 Personal history of nicotine dependence; Z90.79 Acquired absence of other genital organ(s); Z78.9 Other specified health status; Y93.89 Activity, other specified; Y92.89 Other specified places as the place of occurrence of the external cause; Y99.8 Other external cause status
CPT/HCPCS: 80048; 80053; 80202; 80307; 81001; 84145; 85025; 87086; 87186; 88300; 97162; 97165; 97535; 99291; G0480; J0690; J0696; J1644; J1670; J2250; J2405; J3010; J3370; J7040; J7050; J7060; J7120; Q9967

== ENCOUNTER 2023-05-18 19:25 | Emergency (ER) | payer MEDICAID ==
[~2023-05-18] VITALS: Ht 172.7 cm; Wt 68.2 kg
[~2023-05-18 19:25] MED LIST changes: +LEVO-72 PO; +MIRT-89 PO; +TRAZ-252 PO
[2023-05-18 19:31] VITALS: TEMP 98.3
[2023-05-18 20:06] LABS: GLUCOMETER DEV NAME(LOC) ERT.5; GLUCOSE,POINT OF CARE 140 MG/DL (70-110)
[2023-05-18] MEDS: SODIUM CHLORIDE 0.9% 1,000 ML IV ONE (20:45)
[2023-05-18 20:47] LABS: BASOPHILS % (AUTO) 0.1 % (0.0-2.0); EOSINOPHILS % (AUTO) 0 % (1.0-6.0); HEMATOCRIT 41.4 % (41-53); HEMOGLOBIN 13.8 g/dL (13.5-17.5); LYMPHOCYTES # (AUTO) 0.4 K/uL (1.0-4.8); LYMPHOCYTES % (AUTO) 3.3 % (22.0-44.0); MEAN CORPUSCULAR HEMOGLOBIN 30.9 pg (26.0-34.0); MEAN CORPUSCULAR HGB CONC 33.3 G/dL (31.0-37.0); MEAN CORPUSCULAR VOLUME 93 fL (80-100); MONOCYTES # (AUTO) 0.4 K/uL (0.1-1.0); MONOCYTES % (AUTO) 3.1 % (2.0-9.0); NEUTROPHILS # (AUTO) 12.1 K/uL (1.8-7.7); PLATELET COUNT (AUTO) 252 K/uL (150-450); RED BLOOD CELL COUNT(AUTO) 4.47 MIL/uL (4.50-5.90); RED CELL DISTRIBUTION WIDTH 14.6 % (11.5-14.5)
[2023-05-18 20:49] LABS: NEUTROPHILS % (AUTO) 93.5 % (40.0-70.0)
[2023-05-18 20:56] LABS: ANION GAP 6 mmol/L (8-16); CALCIUM, TOTAL 8.6 mg/dL (8.8-10.5); CARBON DIOXIDE 32 mmol/L (22-29); CHLORIDE 105 mmol/L (98-107); CREATININE 0.76 mg/dL (0.60-1.30); GLOMERULAR FILTR. RATE CALC > 60 mL/min (>60); GLUCOSE,RANDOM 129 mg/dL (70-110); SODIUM SERUM 143 mmol/L (136-145); UREA NITROGEN, BLOOD 20 mg/dL (7-18)
[2023-05-18 21:13] LABS: LACTIC ACID 0.6 mmol/L (0.4-2.0)
[2023-05-18 21:20] LABS: ALANINE AMINOTRANSFERASE 33 U/L (12-78); ALBUMIN 3.6 g/dL (3.4-5.0); ALKALINE PHOSPHATASE 55 U/L (46-116); ASPARTATE AMINOTRANSFERASE 20 U/L (15-37); BILIRUBIN,TOTAL 0.1 mg/dL (0.1-1.0); CREATINE KINASE, TOTAL ONLY 147 U/L (39-308)
[2023-05-19 00:05] LABS: APPEARANCE,URINE CLEAR (CLEAR); BILIRUBIN,URINE NEGATIVE (NEGATIVE); COLOR,URINE LIGHT YELLOW (YELLOW); GLUCOSE, URINE (UA) NEGATIVE (NEGATIVE); KETONES,URINE TRACE mg/dL (NEGATIVE); LEUKOCYTE ESTERASE ,URINE NEGATIVE (NEGATIVE); NITRATE,URINE NEGATIVE (NEGATIVE); OCCULT BLOOD,URINE NEGATIVE (NEGATIVE); PH,URINE 6.5 (5.0-8.0); PH,URINE DRUG SCREEN 6.5 (5.0-8.0); PROTEIN,URINE TRACE mg/dL (NEGATIVE); UROBILINOGEN,URINE <=1.0 mg/dL (<=1.0)
[2023-05-19 00:12] LABS: ALCOHOL, URINE DRUG SCREEN NEGATIVE (NEGATIVE); AMPHET/METH SCREEN,URINE POSITIVE (NEGATIVE); BARBITURATE SCREEN, URINE NEGATIVE (NEGATIVE); BENZODIAZEPINES SCREEN,URINE NEGATIVE (NEGATIVE); CANNABINOID SCREEN,URINE NEGATIVE (NEGATIVE); COCAINE SCREEN,URINE NEGATIVE (NEGATIVE); METHADONE SCREEN, URINE NEGATIVE (NEGATIVE); OPIATE SCREEN,URINE NEGATIVE (NEGATIVE); PHENCYCLIDINE SCREEN,URINE NEGATIVE (NEGATIVE)
[2023-05-19 02:46] VITALS: BP 161/108; PULSE 90; RESP 12
== END 2023-05-19 03:27 | disposition home or self-care (01) ==
LOC: EMS 19:25 → EDUNIT# 19:25 → EMS 05-19 03:27
DX: T40.601A Poisoning by unspecified narcotics, accidental (unintentional), initial encounter (principal); F20.9 Schizophrenia, unspecified; F17.210 Nicotine dependence, cigarettes, uncomplicated; Y92.89 Other specified places as the place of occurrence of the external cause
CPT/HCPCS: 99285; 96360; 80053; 81003; 82140; 82550; 82962; 85025; 93005 ×2; 80307; 82948; 83605; 36415; G0480

== ENCOUNTER 2023-06-01 12:17 | Emergency (ER) | payer MEDICAID ==
[~2023-06-01] VITALS: Ht 175.3 cm; Wt 65.9 kg
[2023-06-01 12:23] VITALS: BP 171/114; PULSE 116; RESP 18; TEMP 98.5
== END 2023-06-01 15:44 | disposition left against medical advice (07) ==
LOC: EMS 12:19
DX: Z53.21 Procedure and treatment not carried out due to patient leaving prior to being seen by health care provider (principal)
CPT/HCPCS: 99281; Z7502